=== PATIENT | female | born 1945 | race African-American/Black ===

== ENCOUNTER 2020-02-26 12:30 | Outpatient (CLI) | payer MEDICARE, MEDICAID | END 2020-02-26 23:59 | disposition home or self-care (01) | LOC: WOU 12:30 | PROVIDERS: ATTEND Podiatrist Foot & Ankle Surgery | DX: E11.621 Type 2 diabetes mellitus with foot ulcer (principal); L97.412 Non-pressure chronic ulcer of right heel and midfoot with fat layer exposed; L97.522 Non-pressure chronic ulcer of other part of left foot with fat layer exposed; L84 Corns and callosities; Z89.432 Acquired absence of left foot; Z89.431 Acquired absence of right foot; Z79.02 Long term (current) use of antithrombotics/antiplatelets; Z79.82 Long term (current) use of aspirin | CPT/HCPCS: 11042; J3490 ==

== ENCOUNTER 2020-03-04 13:30 | Outpatient (CLI) | payer MEDICARE, MEDICAID | END 2020-03-04 23:59 | disposition home or self-care (01) | LOC: WOU 13:30 | PROVIDERS: ATTEND Podiatrist Foot & Ankle Surgery | DX: E11.621 Type 2 diabetes mellitus with foot ulcer (principal); L97.422 Non-pressure chronic ulcer of left heel and midfoot with fat layer exposed; Z89.432 Acquired absence of left foot; Z89.431 Acquired absence of right foot; Z79.02 Long term (current) use of antithrombotics/antiplatelets; Z79.82 Long term (current) use of aspirin | CPT/HCPCS: 11042 ==

== ENCOUNTER 2020-03-11 12:15 | Outpatient (CLI) | payer MEDICARE, MEDICAID | END 2020-03-11 23:59 | disposition home or self-care (01) | LOC: WOU 12:15 | PROVIDERS: ATTEND Podiatrist Foot & Ankle Surgery | DX: E11.621 Type 2 diabetes mellitus with foot ulcer (principal); L97.422 Non-pressure chronic ulcer of left heel and midfoot with fat layer exposed; Z89.432 Acquired absence of left foot; Z89.431 Acquired absence of right foot; L84 Corns and callosities; Z79.02 Long term (current) use of antithrombotics/antiplatelets; Z79.82 Long term (current) use of aspirin | CPT/HCPCS: 11042 ==

== ENCOUNTER 2020-03-18 13:10 | Outpatient (CLI) | payer MEDICARE, MEDICAID | END 2020-03-18 23:59 | disposition home or self-care (01) | LOC: WOU 13:10 | PROVIDERS: ATTEND Podiatrist Foot & Ankle Surgery | DX: E11.621 Type 2 diabetes mellitus with foot ulcer (principal); L97.422 Non-pressure chronic ulcer of left heel and midfoot with fat layer exposed; L84 Corns and callosities; Z89.432 Acquired absence of left foot; Z89.431 Acquired absence of right foot; Z79.02 Long term (current) use of antithrombotics/antiplatelets; Z79.82 Long term (current) use of aspirin | CPT/HCPCS: 11042 ==

== ENCOUNTER 2020-03-25 13:00 | Outpatient (CLI) | payer MEDICARE, MEDICAID | END 2020-03-25 23:59 | disposition home or self-care (01) | LOC: WOU 13:00 | PROVIDERS: ATTEND Podiatrist Foot & Ankle Surgery | DX: E11.621 Type 2 diabetes mellitus with foot ulcer (principal); L97.522 Non-pressure chronic ulcer of other part of left foot with fat layer exposed; L84 Corns and callosities; Z89.432 Acquired absence of left foot; Z89.431 Acquired absence of right foot; Z79.82 Long term (current) use of aspirin; Z79.02 Long term (current) use of antithrombotics/antiplatelets | CPT/HCPCS: 11042 ==

== ENCOUNTER 2021-09-07 14:11 | Inpatient (IN) | payer MEDICARE, OTHER ==
[~2021-09-07] VITALS: Ht 170.2 cm; Wt 65.8 kg
[2021-09-07] MEDS ORDERED: IV NS 0.9% 1,000 ML BAG IV ONE (14:30)
--- NOTE | 2021-09-07 14:30 | NUR ---
loc, from home, weakness, found on the ground, denies fall, BS 145. On room air, connected to the monitor and pulse ox. kept comfortable, will continue to monitor accordingly. IV started and blood drawned and sent to lab and urine.
[2021-09-07] MEDS ORDERED: ALPR1TAB7 PO (14:42)
[2021-09-07] MEDS ORDERED: PRAV20TA4 PO (14:42)
[2021-09-07] MEDS ORDERED: CLOP75TA15 PO (14:42)
[2021-09-07] MEDS ORDERED: EZET10TA32 PO (14:42)
[2021-09-07] MEDS ORDERED: LEVO112T7 PO (14:42)
[2021-09-07] MEDS ORDERED: CARV6.252 PO (14:42)
[2021-09-07] MEDS ORDERED: AMLO-213 PO (14:42)
[2021-09-07 15:06] LABS: BASOPHILS % (AUTO) 0.2 % (0.0-2.0); HEMATOCRIT 39 % (33-45); HEMOGLOBIN 12.2 g/dL (11.5-14.8); LYMPHOCYTES # (AUTO) 1.4 K/uL (0.8-4.8); LYMPHOCYTES % (AUTO) 6.4 % (20.0-44.0); MEAN CORPUSCULAR HGB CONC 31 g/dl (31.0-36.0); MEAN CORPUSCULAR VOLUME 95 fL (82-100); MONOCYTES # (AUTO) 2.2 K/uL (0.1-1.30); MONOCYTES % (AUTO) 9.7 % (2.0-12.0); NEUTROPHILS # (AUTO) 18.5 K/uL (1.8-8.9); NEUTROPHILS % (AUTO) 83.7 % (43.0-81.0); PLATELET COUNT (AUTO) 301 K/uL (150-450); RED BLOOD CELL COUNT(AUTO) 4.07 MIL/uL (4.0-5.2); WHITE BLOOD COUNT (AUTO) 22.1 K/uL (4.3-11.0)
[2021-09-07 15:09] LABS: CALCIUM, SERUM 9.8 mg/dL (8.5-10.1); CARBON DIOXIDE 20 mmol/L (21-32); CHLORIDE 114 mmol/L (98-107); CREATININE 4.1 mg/dL (0.6-1.3); GLUCOSE 173 mg/dL (74-106); SODIUM SERUM 153 mmol/L (136-145)
[2021-09-07 15:14] LABS: POTASSIUM 5.9 mmol/L (3.5-5.1); UREA NITROGEN, BLOOD 107 mg/dL (7-18)
[2021-09-07 15:19] LABS: BILIRUBIN,URINE NEGATIVE (NEGATIVE); COLOR,URINE YELLOW (YELLOW); LEUKOCYTE ESTERASE ,URINE MODERATE (NEGATIVE); NITRITE, URINE POSITIVE (NEGATIVE); PROTEIN,URINE 100 mg/dl (NEGATIVE); UGLUCOSE NEGATIVE (NEGATIVE); UROBILINOGEN,URINE 0.2 EU/dL (0.2)
[2021-09-07 15:22] LABS: MAGNESIUM 3.4 mg/dL (1.8-2.4)
[2021-09-07 15:28] LABS: ALANINE AMINOTRANSFERASE 88 U/L (12-78); ALBUMIN 3.3 g/dL (3.4-5.0); ALKALINE PHOSPHATASE 106 U/L (46-116); ASPARTATE AMINOTRANSFERASE 137 U/L (15-37); BILIRUBIN,DIRECT 0.1 mg/dL (0.0-0.2); TOTAL PROTEIN, SERUM 8.8 g/dL (6.4-8.2)
[2021-09-07 15:29] LABS: THYROID STIMULATING HORMONE 9.753 uIU/mL (0.358-3.74)
[2021-09-07] MEDS ORDERED: CALCIUM CHLORIDE 1,000 MG/10 ML DISP.SYRIN IV ONE (15:30)
[2021-09-07] MEDS ORDERED: ENOXAPARIN SODIUM 60 MG/0.6 ML DISP.SYRIN SQ ONE ×2 (15:30→15:36)
[2021-09-07] MEDS ORDERED: FUROSEMIDE 40 MG/4 ML VIAL IV ONE (15:30)
[2021-09-07] MEDS ORDERED: CALCIUM CHLORIDE 1,000 MG/10 ML DISP.SYRIN ONE (15:36)
[2021-09-07] MEDS ORDERED: FUROSEMIDE 20 MG/2 ML VIAL ONE (15:36)
--- NOTE | 2021-09-07 15:45 | NUR ---
SENT COVID SWAB TO LAB
[2021-09-07] MEDS ORDERED: VANCOMYCIN 1 GM in IV D5W 250 ML IV ONE (16:00)
[2021-09-07] MEDS ORDERED: CEFEPIME 1 GM in IV D5W 50 ML IV ONE (16:00)
[2021-09-07 16:05] LABS: BACTERIA,URINE Few /HPF (None Seen); SQUAMOUS EPITHELIAL CELL,UR Few /HPF (None Seen)
--- NOTE | 2021-09-07 17:09 | NUR ---
room 312-2
--- NOTE | 2021-09-07 17:25 | NUR ---
report given to Ellie dunaway.
--- NOTE | 2021-09-07 17:43 | NUR ---
wheeled patient via gurney accompanied by RN and emt in no distress. RN assigned at bedside to assume care.
--- NOTE | 2021-09-07 17:45 | NUR ---
VETERINARY TECHNOLOGY INSTRUCTORCLAY ARTIST NOTE PT TRANSPORTED VIA GURNEY TO UNIT AT THIS TIME. PT ADMITTED TO TELE UNIT FROM ER UNDER RANCH MANAGER THUY. A/O X3, ABLE TO MAKE NEEDS KNOWN. PT ON ROOM AIR TOLERATING WELL. NO SOB OR S/S OF RESPIRATORY DISTRESS NOTED. PT ON EXTERNAL ASSOCIATE SALES READING SR AT 63 BPM. PT HAS NO C/O PAIN OR DISCOMFORT AT THIS TIME. PT NOTED WITH SACRAL ULCER, SCARRING ON BACK, AND MULTIPLE TOE AMPUTATIONS WITH BLE SURGICAL DRESSING C/D/I. WOUND PHOTOS TAKEN AND FILED IN CHART. IV ACCESS IN LAC #18 AND RIGHT WRIST #22, INTACT AND PATENT. DAVIS CATH IN PLACE DRAINING SLIGHTLY CLOUDY, YELLOW URINE. PT ORIENTED TO STAFF, ROOM, AND UNIT. SAFETY PRECAUTIONS MAINTAINED. BED IN LOWEST LOCKED POSITION, HOB ELEVATED, SIDE RAILS UP X2. CALL LIGHT AND TABLE WITHIN REACH. WILL CONTINUE TO MONITOR.
--- NOTE | 2021-09-07 19:00 | NUR ---
MARKETING SALES MANAGER CLOSING NOTE PT IS AWAKE IN BED. A/O X3. PT ON ROOM AIR TOLERATING WELL. NO SOB OR S/S OF RESPIRATORY DISTRESS NOTED. PT ON EXTERNAL REMOTE ADVISOR READING SR AT 66 BPM. PT HAS NO C/O PAIN OR DISCOMFORT AT THIS TIME. IV ACCESS IN LAC #18 AND RIGHT WRIST #22, INTACT AND PATENT. DAVIS CATH IN PLACE DRAINING SLIGHTLY CLOUDY, YELLOW URINE. ALL NEEDS HAVE BEEN MET. SAFETY PRECAUTIONS MAINTAINED AT ALL TIMES. BED IN LOWEST LOCKED POSITION, HOB ELEVATED, SIDE RAILS UP X2. CALL LIGHT AND TABLE WITHIN REACH. WILL ENDORSE TO ONCOMING NURSE FOR AKIRA.
--- NOTE | 2021-09-07 19:30 | NUR ---
OPENING RN NOTES Patient is A&Ox3 but mumbles words and confused at times. Pt is fidgety. SR on monitor. Denies SOB no signs of distress. LAC #18G flushed and patent. Will continue to monitor.
[2021-09-07 20:00] VITALS: BP 132/57
[2021-09-07] MEDS ORDERED: DEXTROSE 50%-WATER 50 ML DISP.SYRIN IV PRN (20:00)
[2021-09-07] MEDS ORDERED: MAGNESIUM HYDROXIDE 30 ML UDC PO PRN (20:00)
[2021-09-07] MEDS ORDERED: ONDANSETRON HCL/PF 4 MG/2 ML VIAL IVP PRN (20:00)
[2021-09-07] MEDS: IV 1/2NS 1000 ML 1,000 ML IV PRN (20:22)
[2021-09-07 20:43] LABS: CALCIUM, SERUM 9.7 mg/dL (8.5-10.1); CARBON DIOXIDE 21 mmol/L (21-32); CHLORIDE 116 mmol/L (98-107); CREATININE 4.3 mg/dL (0.6-1.3); GLUCOSE 151 mg/dL (74-106); SODIUM SERUM 153 mmol/L (136-145)
[2021-09-07] MEDS: CEFTRIAXONE 1 G in IV D5W 50 ML IV SCH (20:46)
[2021-09-07 20:57] LABS: UREA NITROGEN, BLOOD 109 mg/dL (7-18)
[2021-09-07] MEDS: HEPARIN SODIUM, PORCINE 5000 UNITS/1 ML VIAL SQ SCH (21:00)
[2021-09-07] MEDS: BLOOD SUGAR DIAGNOSTIC 1 EACH STRIP IN SCH (21:44)
[2021-09-07] MEDS: INSULIN REGULAR, HUMAN 100 UNIT/ML 3 ML VIAL SQ PRN (21:47)
--- NOTE | 2021-09-07 22:45 | NUR ---
Patient is reporting that her toe amputations are old but will not allow staff to undo dressings and assess feet. Patient states, "they have been cleaned, I don't want you messing with them" referring to her feet and dressings. When attempting to remove wrapping patient screamed "NO!" Explained reasoning x3, pt. still refusing. No pictures able to be taken of feet. Patient denies pain to area.
[2021-09-08] VITALS: BP 121/48
--- NOTE | 2021-09-08 | NUR ---
Per Jesica caregiver patient gets a wound treatment and or debridement every Monday and the wounds are supposed to covered in between treatments. Also stated that patient is very secretive about her foot wounds.
--- NOTE | 2021-09-08 00:13 | NUR ---
2100 heparin held pt already received Lovenox 60mg in ER at 1600.
[2021-09-08 04:00] VITALS: BP 131/53
[2021-09-08] MEDS: IV 1/2NS 1000 ML 1,000 ML IV PRN ×2 (04:31→15:26)
--- NOTE | 2021-09-08 05:45 | NUR ---
Patient more confused at night A&Ox2. Patient fidgeting and awake most of night saying she wants to go home. Tolerating IVF and ABX well, no ase. No hypo or hyperglycemia reactions. Turn q2h, kept clean and dry. Good urine output yellow and slightly cloudy. Patient has been Sr with PVCs on monitor in 70s. Denies chest pain or SOB. No distress noted. 1/2 NS infusing TO LAC #18G IV at 125cc/hr.
[2021-09-08 06:25] LABS: BASOPHILS % (AUTO) 0.1 % (0.0-2.0); HEMATOCRIT 31 % (33-45); HEMOGLOBIN 10.1 g/dL (11.5-14.8); LYMPHOCYTES # (AUTO) 1.3 K/uL (0.8-4.8); LYMPHOCYTES % (AUTO) 8.7 % (20.0-44.0); MEAN CORPUSCULAR HGB CONC 32 g/dl (31.0-36.0); MEAN CORPUSCULAR VOLUME 94 fL (82-100); MONOCYTES # (AUTO) 1.3 K/uL (0.1-1.30); NEUTROPHILS # (AUTO) 12.4 K/uL (1.8-8.9); NEUTROPHILS % (AUTO) 82.2 % (43.0-81.0); PLATELET COUNT (AUTO) 238 K/uL (150-450); RED BLOOD CELL COUNT(AUTO) 3.33 MIL/uL (4.0-5.2)
[2021-09-08 06:52] LABS: CHOLESTEROL 167 mg/dL (<200); HDL CHOLESTEROL 55 mg/dL (40-60); LDL 71 mg/dL (0-99); TRIGLYCERIDES 220 mg/dL (30-150)
[2021-09-08] MEDS: BLOOD SUGAR DIAGNOSTIC 1 EACH STRIP IN SCH ×4 (07:01→21:44)
[2021-09-08 07:08] LABS: CREATINE KINASE, TOTAL 1846 U/L (26-192)
[2021-09-08 07:13] LABS: CALCIUM, SERUM 8.9 mg/dL (8.5-10.1); CARBON DIOXIDE 19 mmol/L (21-32); CHLORIDE 117 mmol/L (98-107); CREATININE 4.1 mg/dL (0.6-1.3); GLUCOSE 105 mg/dL (74-106); MAGNESIUM 2.5 mg/dL (1.8-2.4); PHOSPHORUS 2.7 mg/dL (2.5-4.9); POTASSIUM 3.5 mmol/L (3.5-5.1); SODIUM SERUM 153 mmol/L (136-145)
--- NOTE | 2021-09-08 07:20 | NUR ---
MAT CLEANING MACHINE OPERATOR OPENING NOTES RECEIVED PATIENT LAYING IN BED. A/O X2-3. PATIENT WITH REGULAR AND UNLABORED BREATHING ON ROOM AIR TOLERATED WELL. NO SIGNS AND SYMPTOMS OF DISTRESS NOTED. NO COMPLAIN OF PAIN OR DISCOMFORT AT THIS TIME. WITH IV ACCESS LAC G #18 SL AND R MARYCARMEN G #22 WITH 1/2 NS @125MLS/HR ACCESS PATENT AND INTACT. SAFETY PRECAUTIONS ENFORCED WITH BED LOCKED AND AT LOWEST POSITION SIDERAILS UP X2. CALL LIGHT WITHIN REACH AT ALL TIMES. WILL CONTINUE TO MONITOR PATIENT. Addendum: 09/08/21 at 1822 by WESTON COX RN Navneet JEFFERSON G #22 IS SL AND LAC G #18 WITH 1/2 NS @ 125MLS/HR
[2021-09-08 07:26] LABS: UREA NITROGEN, BLOOD 109 mg/dL (7-18)
[2021-09-08 08:00] VITALS: BP 134/48
[2021-09-08] MEDS: HEPARIN SODIUM, PORCINE 5000 UNITS/1 ML VIAL SQ SCH ×2 (09:22→21:35)
--- NOTE | 2021-09-08 11:55 | NUR ---
MS RN NOTE D/C TELE
[2021-09-08 16:08] VITALS: BP 146/55
--- NOTE | 2021-09-08 18:51 | NUR ---
MS RN CLOSING NOTES RECEIVED PATIENT LAYING IN BED. A/O X2-3. PATIENT WITH REGULAR AND UNLABORED BREATHING ON ROOM AIR TOLERATED WELL. NO SIGNS AND SYMPTOMS OF DISTRESS NOTED. NO COMPLAIN OF PAIN OR DISCOMFORT AT THIS TIME. WITH IV ACCESS LAC G #18 WITH 1/2 NS @125MLS/HRS AND R WRIST G #22 SL. ACCESS PATENT AND INTACT. SAFETY PRECAUTIONS ENFORCED WITH BED LOCKED AND AT LOWEST POSITION SIDERAILS UP X2. CALL LIGHT WITHIN REACH AT ALL TIMES. WILL ENDORSE TO NEXT SHIFT FOR CONTINUITY OF CARE.
--- NOTE | 2021-09-08 19:45 | NUR ---
MS RN OPENING RECEIVED PATIENT IN BED. A/OX2. CONFUSED. PATIENT NOT EXHIBITING S/S OF APPARENT DISTRESS ON ROOM AIR. DENIES PAIN. LAC IV NOTED TO BE INFILTRATED-- TAKEN OFF. NS RUNNING AT 125 CC/HR ON THE R. WRIST NOW. DAVIS CATHETER NOTED DRAINING CLEAR, YELLOW URINE. PATIENT NOTED TO HAVE BLE DRESSING/SACK IN PLACE. PATIENT NEEDS ATTENDED. SAFETY IN PLACE- BED IN LOWEST, LOCKED POSITION, SIDE RAILS UP 4X, BED ALARM ON. WILL CONTINUE WITH PATIENT CARE PLAN.
[2021-09-08 20:00] VITALS: BP 167/60
[2021-09-08] MEDS: CEFTRIAXONE 1 G in IV D5W 50 ML IV SCH (20:20)
[2021-09-08] MEDS: INSULIN REGULAR, HUMAN 100 UNIT/ML 3 ML VIAL SQ PRN (21:47)
--- NOTE | 2021-09-09 05:02 | NUR ---
MS RN NOTE PATIENT CURRENTLY DO NOT HAVE IV ACCESS. R. WRIST IV PULLED OUT. I TRIED, CHARGE NURSE TRIED, AND ICU CAME UP TO TRY TO INSERT A NEW ONE BUT WERE UNSUCCESSFUL. PATIENT HARD STICK. WILL TRY TO GET AN ORDER FOR MIDLINE.
[2021-09-09 06:44] LABS: HEMATOCRIT 31 % (33-45); HEMOGLOBIN 9.8 g/dL (11.5-14.8); LYMPHOCYTES # (AUTO) 1.3 K/uL (0.8-4.8); LYMPHOCYTES % (AUTO) 8.6 % (20.0-44.0); MEAN CORPUSCULAR HGB CONC 32 g/dl (31.0-36.0); MEAN CORPUSCULAR VOLUME 93 fL (82-100); MONOCYTES # (AUTO) 1.5 K/uL (0.1-1.30); MONOCYTES % (AUTO) 9.9 % (2.0-12.0); NEUTROPHILS # (AUTO) 12.1 K/uL (1.8-8.9); NEUTROPHILS % (AUTO) 81.5 % (43.0-81.0); PLATELET COUNT (AUTO) 259 K/uL (150-450); WHITE BLOOD COUNT (AUTO) 14.8 K/uL (4.3-11.0)
[2021-09-09] MEDS: BLOOD SUGAR DIAGNOSTIC 1 EACH STRIP IN SCH ×4 (06:47→22:00)
[2021-09-09] MEDS: INSULIN REGULAR, HUMAN 100 UNIT/ML 3 ML VIAL SQ PRN ×4 (06:48→22:44)
--- NOTE | 2021-09-09 06:48 | NUR ---
MS RN NOTE BLOOD SUGAR 77. NO COVERAGE.
[2021-09-09 07:27] LABS: CALCIUM, SERUM 8.9 mg/dL (8.5-10.1); CARBON DIOXIDE 16 mmol/L (21-32); CHLORIDE 121 mmol/L (98-107); CREATININE 2.9 mg/dL (0.6-1.3); GLUCOSE 104 mg/dL (74-106); MAGNESIUM 2.6 mg/dL (1.8-2.4); PHOSPHORUS 2.1 mg/dL (2.5-4.9); POTASSIUM 3.4 mmol/L (3.5-5.1); SODIUM SERUM 153 mmol/L (136-145)
[2021-09-09 07:28] LABS: UREA NITROGEN, BLOOD 90 mg/dL (7-18)
--- NOTE | 2021-09-09 07:31 | NUR ---
REPORT GIVEN TO BRAEDEN FOR CONTINUITY OF CARE.
--- NOTE | 2021-09-09 07:35 | NUR ---
RN OPENING NOTES Patient seen comfortably lying in bed, no SOB, no apparent distress noted, breathing even and unlabored, denies any pain or discomfort at this time, no grimacing. Call light left within reach, safety precautions in place, brakes locked, side rails up X 2, will monitor closely for any changes.
[2021-09-09 08:00] VITALS: BP 128/49
--- NOTE | 2021-09-09 08:37 | NUR ---
WOUND CARE CONSULT: PT PRESENTS WITH MULTIPLE SKIN ISSUES INCLUDING SACRAL STAGE 4 ULCER, SCAR TO MIDBACK AND NONREMOVABLE DRESSINGS TO BILATERAL LOWER EXTREMITIES, ALL PRESENT ON ADMISSION. PT IS INCONTINENT OF STOOL. DAVIS CATH NOTED. RECOMMENDATIONS MADE FOR SKIN PROTECTION AND WOUND CARE OF SACRAL WOUND. DISCUSSED WITH NURSING STAFF. DR DARBY MATSON AND DR HENDERSON NOTIFIED OF SURGICAL AND DPM CONSULT REQUESTS. PT IS ON [facility] BED. IN AGREEMENT WITH PLAN OF CARE. Addendum: 09/09/21 at 0839 by ARSENIO GHOTRAU Amended: Links added. Addendum: 09/09/21 at 0909 by ARSENIO GHOTRAU PER LAURE MEADOWS TO REMOVE LOWER EXTREMITY DRESSINGS. BILATERAL MULTILAYER COMPRESSION WRAPS REMOVED, RT HEEL DRESSING REMOVED. PT REFUSED TO HAVE SILVER DRESSING AND PADDING REMOVED FROM LEFT PLANTAR FOOT. PHOTOS TAKEN AND GENTLE KERLIX WRAPS PLACED ON FEET AND ANKLE AREAS. PT TOLERATED WELL.
[2021-09-09] MEDS ORDERED: IV D5/0.45 NACL 1,000 ML IV PRN (09:30)
[2021-09-09] MEDS: Z GUARD REMEDY 2 OZ OINT TP SCH (10:28)
[2021-09-09] MEDS: Z GUARD REMEDY 2 OZ OINT TP PRN (10:28)
[2021-09-09] MEDS: DAKINS QUARTER STRENGTH (0.125%) 480 ML BOTTLE TOP SCH (10:29)
[2021-09-09] MEDS: HEPARIN SODIUM, PORCINE 5000 UNITS/1 ML VIAL SQ SCH ×2 (10:29→22:23)
--- NOTE | 2021-09-09 11:30 | NUR ---
Patient has an order for excisional debridement of sacral wound, called Jayne Hinson to obtained consent for the procedure (phone: [phone]), and voice machine said that the number has been disconnected or no longer in service, asked patient if she knows Lilorenu's number and she said she cannot remember, patient AO X 2-3 with episodes of forgetfulness and confusion.
[2021-09-09] MEDS: MINERAL OIL/PETROLATUM,WHITE 120 GM JAR TP SCH (11:35)
--- NOTE | 2021-09-09 14:30 | NUR ---
Patient has an order for excisional debridement of sacral wound, called Jesica (caregiver) (phone [phone]) to ask if by any chance she have Jayne Hinson's phone number and she said she only know that patient has two sisters but she does not have their number, and won't be able to provide their phone numbers.
[2021-09-09 16:00] VITALS: BP 133/64
--- NOTE | 2021-09-09 16:04 | NUR ---
SS Consult: SS consult for sacral pressure ulcer, pt. found on floor at home. Pt. Is a 76-year-old female. Pt. demonstrates adequate insight to the reason for hospitalization. Per pt., she was brought to hospital by ambulance [called by friend Jayne [phone]] due to not feeling well. Pt. was oriented x3, alert, and cooperative. During interview, pt. was capable of following directions, made appropriate eye-contact, and appeared tired. Pt.s speech was at a normal rate. Pt.s mood was elevated. SW explored pt.s Hx of mental health and substance abuse. Pt. reported no Hx of mental health, substance abuse, Suicide, homicide, denied AH/VH, paranoia or delusions. SW explored pt.s living situation. Per pt., she lives alone [[address] [place] [address] Per pt., she reports having adequate support from her friend Jayne. Per pt., she mentioned that her friend is also her caregiver and nurse. According to pt., Jayne comes check on her daily. Pt. reported that she comes to the hospital [[facility]] every week for wound care. HAIM explored pt.s fall at home. Per pt., she fell because she was tired. Pt. mentioned that her caregiver Jayne was there to call the ambulance. HAIM explored pt.s financial status. Per pt., she is not working and does not receive any benefits. Plan: HAIM provided available senior resources and pt. accepted. HAIM made APS report regarding fall. Intake Number: [id number] Once discharge, per pt., she will return to her home [[address] [place] [address]]. Resources Provided: ABUSE PREVENTION: ELDER ABUSE HOTLINE (15/05) ADULT PROTECTIVE SERVICES HOTLINE LONG-TERM CARE [facility] AREA ON AGING (HOTLINE) ADULT DAY HEALTH CARE CARE CENTERS: Private pay or [facility] funded adult day care [facility] Day Health Care [facility] , [facility] Services , [facility] Adult Care Center , [facility] Day Health Care , [facility] Day Health Care , [facility] , [facility] , [place] Gaudencio [facility] , [place] ALZHEIMERS DISEASE/DEMENTIA: Alzheimers Association Helpline [facility] Chapter www.alz.org/[facility] Department of Aging www.lacity.org Family Caregiver [place] www.caregiver.org [place] Caregiver Resources Center/Family Support www.beaver valley hospitalangeuofl health - jewish hospital.org CANCER RESOURCES: [place] Cancer Society www.cancer.org Cancer Support Community www.CancerSupportVvsb.org: CancerCare www.cancercare.org [facility] Cancer Support [place] www.[facility].org COMMUNITY HEALTH ASSOCIATIONS: AARP www.aarp.org ALS Association (ask for Lin) www.als.org [place] Diabetes Association www.diabetes.org [place] Heart Association www.heart.org [place] Lung Association www.lungusa.org [place] Parkinson Disease Association www.apdaparkinson.org [place] White , www.redcross.org Arthritis Foundation www.arthritis.org Crohns & Colitis Foundation of [place] www.ccfa.org/chapters/itz National Multiple Sclerosis Society www.nationalmssociety.org Myasthenia Gravis Foundation www.myasthenia-ca.org National Stroke Association www.stroke.org CONSERVATORSHIP & GUARDIANSHIP: AARP Blanche Bob Legal Services Center for Health Care Rights Eldercare Information and Referral Top Case Assembler Foundation [facility]: [facility] Bar Referral Service [facility] Legal Services Office of the Public Guardian [place] EYESIGHT DISORDER RESOURCES: [place] Macular Degeneration Foundation [facility] www.brandenburg center.org GRIEF AND BEREAVEMENT RESOURCES: The [place] , [facility] THE HOPE Connection , [facility] , [place] HEARING DISORDER RESOURCES: [place] Telephone Access Program Deaf and Disabled Telecommunications Program www.ddtp.[facility].ca.gov HearRx Hearing Centers ([place]) Better Hearing Systems , [place] GLAD ([facility] Agency on Deafness) V/ TTY; Site Technician , [facility] Hearing [facility] -low income hearing aid assistance www.Medic Vision Brain Technologiesdetwiler memorial hospitalringfoundation.org [place] [facility] , [place] HELP AT HOME CAREGIVER SUPPORT: In Home Support Services (Must have Medi-Kurt to be eligible) *Ask for a list of agencies that provide services to assist with care in the home. Local Senior Centers also have listings of care providers. HOME SAFETY MODIFICATIONS AND EQUIPMENT: Senior centers have additional referrals. [place] Housing and Community Investment Dept. Handyworker Program (low income) or Visit http://hcidla.lacity.org/dhu-qzbppg-dc for more information National Seating and Mobility and/or ; Forever Active www.foreverVisual Revenuemed.com Stay Home Safe www.Stayhomesafe.com LIFE ALERT RESPONSE SYSTEM: [place]! Services 961-574-3701 www. GaBoom Life Alert 059-701-4666 www.Hit Systems Life Station 293-800-6254 www.OSA Technologiesation.Dtime Safe Return 658-629-6044 www.alz.or/safereturn Cell Phones for Seniors www.BookBottles MEALS AND FOOD PROGRAMS: [place] Meals on Wheels [phone] [place] Meals on Wheels [phone] [facility] [phone] [place] to the Homebound [phone] [place] to the Homebound [phone] [facility] to the Homebound [phone] [facility] to the Homebound [phone] [facility] Pablo Potts [phone] [facility] 922-700-8706 ONE Generation [phone] [facility] [phone] [facility] [phone] Meals on Wheels [phone] For all ages: $6.85/ meal w side. Delivered M-F from 10 am-1pm. Application and payment is done over the phone. Frozen meals available for weekends. Emergency Food Coalsierra [place] [phone] [facility] Precast Molder [phone] [facility] [phone] [facility]- Brown bag lunches [phone] [facility] [phone] MEAL/GROCERY DELIVERY PROGRAMS: [facility] Gourmet Meals [phone]- [facility] [phone]- [facility] Magic Kitchen [phone] Moms Meals [phone] (ask Pfeiffer for Discount Select grocery stores may provide delivery. MEDICAL INSURANCE SUPPORT SERVICES: Center for Health Care Rights [phone] Health Insurance Counseling/Advocacy Programs (HICAP)-Must have Medicare. Offers counseling for Medi-Kurt eligibility [phone] [facility] Public Precast Molder [phone] www.[facility].ca.gov Medicare 807-261-4663 www.socialsecurity.org Social Security [phone] SENIOR ACTIVITY PROGRAMS: *Contact a local senior center, adult school, recreation facility or community college for education, fitness, recreation, and social programs. Aquatic Therapy and Adapted Exercise programs through [facility] [phone] Encore at [facility] [phone] www.vencor hospital/encore U- Senior Friends [phone] [place] Senior Programs [phone] www.oasisnet.org Suddenly 65 www.eimejvax64.com SENIOR CENTERS: [facility] [phone] [facility] [place] [phone] [facility] [phone] [facility] [phone] [facility] [phone] [facility] [phone] [facility] [phone] [facility] [phone] One Generation, [facility] [phone] [facility] [phone] [facility] [phone] [facility] [phone] [facility] [phone] TRANSPORTATION: Local [facility] Centers may have applications for transportation programs and additional resources. ACCESS Services [phone] Transportation for seniors and disabled persons 7 days a week requiring 254 hr. advance reservation. Must apply and register for program perry eligible. [employer]arma 755-514-2285 or [phone] Transportation for seniors and persons with ADA card/metro disabled card in the [facility]. M-F only. Must register for services. ONE GENERATION [phone] Serves 65 years + in conjunction with [place] Partnerse program. Must be registered with both programs. A to B Transport [phone] Provides wheelchair/gurney van service. Adult Medical Transport [phone] Accepts Medi-kurt with prior authorization. Care Van [phone] Provides wheelchair Transport. [facility] Wide Transportation [phone] Provides gurney service [facility] [phone] Gurney Transport. [facility] Transportation [phone] wheelchair & gurney transport [facility] Transportation [phone] wheelchair & gurney transport [place] Non-Emergency Transport [phone] wheelchair & gurney transport [facility] Living [place] [phone] Short Term Transportation primarily for adults with disabilities on social security income. Nominal fee may apply and a reservation is required. Lemon Curve Cab [phone] or [phone] [facility] [phone] [place] [address] Referral Services -[phone] For additional programs & services VETERANS RESOURCES: Submissions for Aid and Attendance should be done directly to Federal VA office locatd at : [address] [address] X110 National Caregiver Support Line [phone] [facility] Veterans Services Field Office [phone] [place] Department of [place] Affairs [phone] Pension Information [phone]
[2021-09-09] MEDS: AMMONIUM LACTATE 227 GM BOTTLE TP SCH (17:06)
[2021-09-09] MEDS: GLUCERNA SHAKE 237 ML CAN PO SCH (17:06)
[2021-09-09] MEDS ORDERED: POTASSIUM CHLORIDE 20 MEQ POWDER PACKET PO ONE (17:30)
--- NOTE | 2021-09-09 18:41 | NUR ---
RN CLOSING NOTES Patient lying in bed, AO X 2, with episodes of forgetfulness and confusion, redirection and reorientation provided. No apparent distress noted, no SOB, respirations even and unlabored, denies any pain or discomfort, no grimacing. All medications given per MD order, tolerating well. No s/s of hypo/hyperglycemia noted, insulin given per sliding scale per MD order, tolerating well. Patient has an order for D5/0.45NS at 100ml/hr, tolerating well, IV fluids infusing on her midline located on her right upper arm that is inserted today, dressing dry and intact, no bleeding noted, denies any pain or discomfort at site, no swelling, no redness at this time. Lopez catheter draining clear yellowish urine free from any sediments, no hematuria, and no unusual odor noted in urine, denies any bladder pain or discomfort, bladder non distended during shift. Kept clean and dry, all needs anticipated, call light left within reach, safety precautions in place, brakes locked, side rails up X 2, will endorse to next shift for continuity of care.
--- NOTE | 2021-09-09 18:45 | NUR ---
Patient has an order for excisional debridement of sacral wound, tried to call Jayne Hinson's number (phone: [phone]) to obtain consent for the procedure and voice machine said that the number has been disconnected or no longer in service, consent form for procedure not signed yet, will endorse to incoming nurse to follow up.
[2021-09-09 20:00] VITALS: BP 142/74
--- NOTE | 2021-09-09 20:01 | NUR ---
MS RN OPENING NOTES: RECEIVED PATIENT SLEEP IN BED COMFORTABLY, BED IN LOW POSITION, CALL LIGHTS WITHIN REACH, NO COMPLAIN OF PAIN AND DISCOMFORT AT THIS TIME, A/O X2 CONFUSED ON BED REST, WITH ROLAND MIDLINE WITH ONGOING D5 1/2 NSS AT 100ML PER HOUR INFUSING WELL, PATIENT ON BLOOD SUGAR MONITORING, PATIENT KEPT CLEAN AND DRY ALL NEED MET, WILL CONTINUE TO MONITOR.
[2021-09-09] MEDS: CEFTRIAXONE 1 G in IV D5W 50 ML IV SCH (22:22)
[2021-09-10] MEDS ORDERED: SODIUM BICARBONATE SYR 50 MEQ/50 ML DISP.SYRIN ONE (01:11)
[2021-09-10] MEDS: Sodium Bicarbonate 50 MEQ in IV D5W 1,000 ML IV SCH ×3 (02:08→21:13)
--- NOTE | 2021-09-10 07:28 | NUR ---
MS RN OPENING NOTES RECEIVED PATIENT LAYING IN BED. A/O X2-. VERBALLY RESPONSIVE, DENIES PAIN OR ANY DISCOMFORTS AT THIS TIME. ON ROOM AIR TOLERATED WELL. NO SIGNS AND SYMPTOMS OF DISTRESS NOTED. MIDLINE ON ROLAND INTACT WITH IVF D5 NA HCO3 50MEQ NS @100MLS/HR ACCESS PATENT AND INTACT. SAFETY PRECAUTIONS ENFORCED WITH BED LOCKED AND AT LOWEST POSITION SIDERAILS UP X2. CALL LIGHT WITHIN REACH AT ALL TIMES. WILL CONTINUE TO MONITOR PATIENT.
[2021-09-10] MEDS: BLOOD SUGAR DIAGNOSTIC 1 EACH STRIP IN SCH ×4 (07:32→22:00)
--- NOTE | 2021-09-10 07:37 | NUR ---
MS RN CLOSING NOTES: PATIENT SLEEP IN BED COMFORTABLY, BED IN LOW POSITION, CALL LIGHTS WITHIN REACH, NO COMPLAIN OF PAIN AND DISCOMFORT AT THIS TIME, ON RA NO SOB NOTED, WITH IV MIDLINE AT ROLAND WITH ONGOING D5W INFUSING WELL, SACRAL DRESSING CLEAN AND DRY, ALL NEEDS MET,
[2021-09-10 08:18] VITALS: BP 149/65
[2021-09-10] MEDS: GLUCERNA SHAKE 237 ML CAN PO SCH ×2 (08:20→16:57)
[2021-09-10] MEDS: HEPARIN SODIUM, PORCINE 5000 UNITS/1 ML VIAL SQ SCH ×2 (08:34→21:30)
[2021-09-10] MEDS: AMMONIUM LACTATE 227 GM BOTTLE TP SCH ×2 (08:35→16:58)
[2021-09-10] MEDS: MINERAL OIL/PETROLATUM,WHITE 120 GM JAR TP SCH (08:36)
[2021-09-10] MEDS: DAKINS QUARTER STRENGTH (0.125%) 480 ML BOTTLE TOP SCH (08:36)
[2021-09-10] MEDS: Z GUARD REMEDY 2 OZ OINT TP PRN (08:37)
[2021-09-10] MEDS: Z GUARD REMEDY 2 OZ OINT TP SCH (08:51)
[2021-09-10] MEDS: INSULIN REGULAR, HUMAN 100 UNIT/ML 3 ML VIAL SQ PRN ×3 (12:05→22:48)
[2021-09-10 12:17] LABS: CALCIUM, SERUM 8.8 mg/dL (8.5-10.1); CARBON DIOXIDE 24 mmol/L (21-32); CHLORIDE 118 mmol/L (98-107); CREATININE 2.4 mg/dL (0.6-1.3); GLUCOSE 174 mg/dL (74-106); MAGNESIUM 2.3 mg/dL (1.8-2.4); PHOSPHORUS 2.3 mg/dL (2.5-4.9); POTASSIUM 4.2 mmol/L (3.5-5.1); SODIUM SERUM 152 mmol/L (136-145); UREA NITROGEN, BLOOD 66 mg/dL (7-18)
--- NOTE | 2021-09-10 13:17 | NUR ---
MS RN NOTES RECEIVED CALL FROM DOREEN AT [facility] THAT PATIENT HAS CRITICAL LAB HIGH CK MB 8.9 DNP THUY NOTIFIED AND ACKNOWLEDGED. WILL CONTINUE TO MONITOR PATIENT.
[2021-09-10 13:19] LABS: BASOPHILS % (AUTO) 0.2 % (0.0-2.0); EOSINOPHILS % (AUTO) 0.4 % (0.0-6.0); HEMATOCRIT 33 % (33-45); HEMOGLOBIN 10.2 g/dL (11.5-14.8); LYMPHOCYTES # (AUTO) 1.5 K/uL (0.8-4.8); LYMPHOCYTES % (AUTO) 9.1 % (20.0-44.0); MEAN CORPUSCULAR HGB CONC 31 g/dl (31.0-36.0); MEAN CORPUSCULAR VOLUME 95 fL (82-100); MONOCYTES # (AUTO) 1.4 K/uL (0.1-1.30); MONOCYTES % (AUTO) 8.9 % (2.0-12.0); NEUTROPHILS # (AUTO) 13.1 K/uL (1.8-8.9); NEUTROPHILS % (AUTO) 81.4 % (43.0-81.0); PLATELET COUNT (AUTO) 304 K/uL (150-450); RED BLOOD CELL COUNT(AUTO) 3.48 MIL/uL (4.0-5.2); WHITE BLOOD COUNT (AUTO) 16.1 K/uL (4.3-11.0)
--- NOTE | 2021-09-10 14:26 | NUR ---
MS RN NOTES TRIED TO CONTACT DPOA FOR CONSENT FOR WOUND DEBRIDEMENT WITH PHONE NUMBER ON NOTES TWICE WITH NO ANSWER AND LEFT A MESSAGE. CALLED ZANDER THE CAREGIVER TWICE WITH NO ANSWER AND LEFT A MESSAGE.
[2021-09-10 16:00] VITALS: BP 160/64
[2021-09-10] MEDS ORDERED: K PHOS NEUTRAL 250 MG TABLET PO ONE (16:30)
--- NOTE | 2021-09-10 18:51 | NUR ---
MS RN CLOSING NOTES PATIENT IN BED AWAKE AT THIS TIME, HOB ELEVATED. A/O X2-3. ABLE TO COMMUNICATE VERBALLY WITH CONFUSION AND FORGETFULNESS. ON ROOM AIR, TOLERATED WELL. NO SIGNS AND SYMPTOMS OF ACUTE RESPIRATORY DISTRESS NOTED DURING THE DAY. MIDLINE ON ROLAND INTACT WITH IVF D5 NA HCO3 50MEQ @100 MLS/HR. PT TURNED AND REPPOSTIONED Q 2HRS AND PRN. KEPT CLEAN NAD DRY AT ALL TIMES. ALL NEEDS AND CARE PROVIDED WELL. SAFETY PRECAUTIONS KEPT IN PLACE: BED LOCKED AND IN LOWEST POSITION, SIDERAILS UP X2 AND CALL LIGHT WITHIN REACH AT ALL TIMES. WILL ENDORSED AKIRA TO HOUSING OFFICER NURSE.
--- NOTE | 2021-09-10 19:35 | NUR ---
MS RN OPENING NOTES: RECEIVED PATIENT AWAKE IN BED, BED IN LOW POSITION CALL LIGHTS WITHIN REACH, NO COMPLAIN OF PAIN AND DISCOMFORT AT THIS TIME, PATIENT IS A/OX 2=3-4 WITH EPISODE OF CONFUSION, ON BED REST, ON DAVIS CATH WITH 30CC URINE OUTPUT. WITH ROLAND MIDLINE WITH ONGOING D5W WITH SODIUM BICARBONATE @100ML PER HOUR INFUSING WELL, PATIENT KEPT CLEAN AND DRY, ALL NEEDS MET, WILL CONTINUE TO MONITOR.
[2021-09-10 20:00] VITALS: BP 132/59
[2021-09-10] MEDS: CEFTRIAXONE 1 G in IV D5W 50 ML IV SCH (21:27)
[2021-09-11] MEDS: Sodium Bicarbonate 50 MEQ in IV D5W 1,000 ML IV SCH (06:17)
[2021-09-11] MEDS: INSULIN REGULAR, HUMAN 100 UNIT/ML 3 ML VIAL SQ PRN ×4 (06:36→22:37)
--- NOTE | 2021-09-11 06:42 | NUR ---
MS RN CLOSING NOTES: PATIENT SLEEP IN BED COMFORTABLY, AROUSABLE TO VERBAL STIMULI, BED IN LOW POSITION, CALL LIGHTS WITHIN REACH, NO COMPLAIN OF PAIN AND DISCOMFORT AT THIS TIME, BR ON DAVIS CATHETER WITH 500CC URINE OUTPUT, WITH ROLAND MIDLINE WITH ONGOING D5W 1000ML SODIUM BICARBONATE 50 MEQ@100ML PER HOUR INFUSING WELL, DRESSING CHANGE, PATIENT KEPT CLEAN AND SRY, ALL NEEDS MET, ENDORSE TO INCOMING SHIFT.
[2021-09-11 06:51] LABS: BASOPHILS % (AUTO) 0.1 % (0.0-2.0); HEMATOCRIT 31 % (33-45); HEMOGLOBIN 9.5 g/dL (11.5-14.8); LYMPHOCYTES # (AUTO) 1.4 K/uL (0.8-4.8); LYMPHOCYTES % (AUTO) 9.6 % (20.0-44.0); MEAN CORPUSCULAR HGB CONC 31 g/dl (31.0-36.0); MEAN CORPUSCULAR VOLUME 95 fL (82-100); MONOCYTES # (AUTO) 1.4 K/uL (0.1-1.30); MONOCYTES % (AUTO) 9.9 % (2.0-12.0); NEUTROPHILS # (AUTO) 11.5 K/uL (1.8-8.9); NEUTROPHILS % (AUTO) 79.4 % (43.0-81.0); PLATELET COUNT (AUTO) 285 K/uL (150-450); RED BLOOD CELL COUNT(AUTO) 3.22 MIL/uL (4.0-5.2); WHITE BLOOD COUNT (AUTO) 14.5 K/uL (4.3-11.0)
--- NOTE | 2021-09-11 07:19 | NUR ---
RN OPENING NOTES: PATIENT IN BED RESTING, EYES CLOSED. AROUSABLE TO VERBAL AND TACTILE STIMULI. BREATHING EVEN AND UNLABORED. ROLAND MIDLINE INTACT AND PATENT, IVF INFUSING WELL. DAVIS CATH IN PLACE, DRAINING YELLOW-COLORED URINE. SAFETY MEASURES IN PLACE. WILL CONTINUE TO MONITOR.
[2021-09-11] MEDS: BLOOD SUGAR DIAGNOSTIC 1 EACH STRIP IN SCH ×4 (07:35→22:26)
[2021-09-11 08:00] VITALS: BP 107/57
[2021-09-11 08:02] LABS: CALCIUM, SERUM 8.4 mg/dL (8.5-10.1); CARBON DIOXIDE 26 mmol/L (21-32); CHLORIDE 112 mmol/L (98-107); CREATININE 1.8 mg/dL (0.6-1.3); GLUCOSE 147 mg/dL (74-106); PHOSPHORUS 2.2 mg/dL (2.5-4.9); POTASSIUM 3.3 mmol/L (3.5-5.1); SODIUM SERUM 148 mmol/L (136-145); UREA NITROGEN, BLOOD 44 mg/dL (7-18)
[2021-09-11] MEDS: LEVOTHYROXINE SODIUM 25 MCG TABLET PO SCH (08:27)
[2021-09-11] MEDS: HEPARIN SODIUM, PORCINE 5000 UNITS/1 ML VIAL SQ SCH (08:29)
[2021-09-11] MEDS: AMMONIUM LACTATE 227 GM BOTTLE TP SCH ×2 (08:33→16:33)
[2021-09-11] MEDS: Z GUARD REMEDY 2 OZ OINT TP SCH (08:34)
[2021-09-11] MEDS: MINERAL OIL/PETROLATUM,WHITE 120 GM JAR TP SCH (08:34)
[2021-09-11] MEDS: GLUCERNA SHAKE 237 ML CAN PO SCH ×2 (08:34→16:34)
[2021-09-11] MEDS: DAKINS QUARTER STRENGTH (0.125%) 480 ML BOTTLE TOP SCH (08:34)
--- NOTE | 2021-09-11 09:19 | NUR ---
RN NOTES AM MEDS GIVEN TO PATIENT. VERBALIZES THAT SHE HAS A RED BOOK AT HOME W/ CONTACT INFO OF HER SISTERS (GREER IN [place] AND MORENA SIERRA IN [place]); WILL ASK CAREGIVER ZANDER IF PRESENT AT HOME.
[2021-09-11] MEDS ORDERED: POTASSIUM CHLORIDE 10 MEQ TABLET.SA PO ONE (09:30)
--- NOTE | 2021-09-11 10:50 | NUR ---
RN NOTES PATIENT SEEN BY DR. DALEY TODAY. NO RELATIVE CURRENTLY INVOLVED IN PATIENT'S CARE AND UNABLE TO OBTAIN CONSENT FROM FAMILY/PATIENT DUE TO MENTAL STATUS (PATIENT IS A/O X2 BUT HAS EPISODES OF FORGETFULLNESS/CONFUSION). DNP SIGNED CONSENT; WILL OBTAIN ANOTHER HOSPITALIST CONSENT APPLICABLE.
[2021-09-11] MEDS: IV D5W 1,000 ML IV PRN (13:00)
[2021-09-11] MEDS ORDERED: CELLULOSE,OXIDIZED 1 EA PACK MC ONE (13:30)
[2021-09-11] MEDS ORDERED: LIDOCAINE 1% INJ 50 ML MDV IJ ONE (13:30)
[2021-09-11] MEDS ORDERED: SILVER NITRATE APPLICATOR 1 EA BOX TP ONE (13:30)
--- NOTE | 2021-09-11 13:39 | NUR ---
RN NOTES SILVER NITRATE APPLICATOR AND SURGICELL NOT USED AT THIS TIME BY SERVANDO COLUNGA; WOUND DEBRIDEMENT DONE AND DRESSING CHANGE DONE.
[2021-09-11] MEDS: ACETAMINOPHEN 325 MG TABLET PO PRN (13:45)
--- NOTE | 2021-09-11 14:04 | NUR ---
RN NOTES SACRAL WOUND SPECIMEN OBTAINED COLLECTED BY SERVANDO COLUNGA, AND PLACED IN THE REFRIGERATOR FOR PICK-UP.
[2021-09-11] MEDS ORDERED: K PHOS NEUTRAL 250 MG TABLET PO ONE (15:30)
[2021-09-11 16:00] VITALS: BP 138/52
[2021-09-11] MEDS: CARVEDILOL 6.25 MG TABLET PO SCH (16:34)
[2021-09-11] MEDS: ATORVASTATIN 10 MG TABLET PO SCH (17:12)
--- NOTE | 2021-09-11 19:11 | NUR ---
MS RN CLOSING NOTES: PATIENT SLEEP IN BED RESTING COMFORTABLY, EYES CLOSED, ABLE TO BE AWAKENED. BREATHING EVEN AND UNLABORED. DAVIS CATH DRAINING YELLOW-COLORED URINE; BAG CHANGED. IVF INFUSING WELL. SAFETY MEASURES MAINTAINED. ALL DUE MEDS GIVEN. ENDORSED TO PIE MAKER RN FOR AKIRA.
--- NOTE | 2021-09-11 19:15 | NUR ---
RN NOTES: RECEIVED ASLEEP ON BED, IN SEMI FOWLERS POSITION, A/O1-2 WITH PERIODS OF CONFUSION AND FORGETFULNESS, ON ROOM AIR, ON DAVIS CATH DRAINING INTO YELLOWISH URINE AT 100CC LEVEL, ROLAND MID LINE INTACT, WITH IVF OD D5%WATT 50CC/HR, OFF LOADED BLE, URINE SPECIMEN COLLECTED AND SENT TO LAB PER ENDORSEMENT, AWAITING FOR THE RESULT.ORIENTED TO UNIT AND STAFF, FALL AND SAFETY PRECAUTION OBSERVED, KEPT CALL LIGHT WITHIN EASY REACH.NO SIGN OF RESPIRATORY DISCOMFORT.
[2021-09-11 20:00] VITALS: BP 141/57
[2021-09-11] MEDS: CEFTRIAXONE 1 G in IV D5W 50 ML IV SCH (20:28)
--- NOTE | 2021-09-11 22:38 | NUR ---
RN NOTES: AT FIRST SHE REFUSE FOR BLOOD SUGAR CHECKED,AFTER EXPLANATION SHE AGREED, BS -135, INSULIN GIVEN PER SCALE, GIVEN EXPLANATION THAT HER INSULIN INJECTION WILL BE GIVEN, SHE AGREED AND COOPERATE.
--- NOTE | 2021-09-12 01:11 | NUR ---
RN NOTES: AT 2200 AWAKE IN BETWEEN, NEEDS ANTICIPATED, ABLE TO MAKE NEEDS KNOWN, COOPERATIVE, NO SIGN OF AGGRESSIVE BEHAVIOR, KEPT MONITORED. -AT 2300 ASLEEP AT SHORT INTERVALS.
--- NOTE | 2021-09-12 06:02 | NUR ---
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 --ABLE TO DO SACRAL DRESSING AND CHANGE HER INCONTINENT PAD, SHE REFUSED DRESSING ON THE RIGHT AND LEFT FOOT.CONTINUE OFF LOADING.
[2021-09-12 06:44] LABS: BASOPHILS % (AUTO) 0.1 % (0.0-2.0); EOSINOPHILS % (AUTO) 0.9 % (0.0-6.0); HEMATOCRIT 28 % (33-45); LYMPHOCYTES # (AUTO) 1.1 K/uL (0.8-4.8); LYMPHOCYTES % (AUTO) 8.2 % (20.0-44.0); MEAN CORPUSCULAR HGB CONC 32 g/dl (31.0-36.0); MEAN CORPUSCULAR VOLUME 93 fL (82-100); MONOCYTES # (AUTO) 1.5 K/uL (0.1-1.30); MONOCYTES % (AUTO) 11.2 % (2.0-12.0); NEUTROPHILS # (AUTO) 10.5 K/uL (1.8-8.9); NEUTROPHILS % (AUTO) 79.6 % (43.0-81.0); PLATELET COUNT (AUTO) 273 K/uL (150-450); RED BLOOD CELL COUNT(AUTO) 3.02 MIL/uL (4.0-5.2); WHITE BLOOD COUNT (AUTO) 13.2 K/uL (4.3-11.0)
--- NOTE | 2021-09-12 06:52 | NUR ---
RN NOTES: RN EXPLAINED IF WE CAN GET HER BLOOD SUGAR CHECK, SHE SAID "NO, PLEASE DO NOT DISTURBED MY SLEEP, GO AWAY",WILL ENDORSED TO CHECK ON THE NEXT SHIFT.
--- NOTE | 2021-09-12 07:08 | NUR ---
MS RN NOTES - OPENING REPORT RECEIVED FROM PM RN AT BEDSIDE. Pt IN NAD AT THIS TIME. VSS. EYES CLOSED. RR EVEN AND UNLABORED.
[2021-09-12 07:21] LABS: CALCIUM, SERUM 7.9 mg/dL (8.5-10.1); CARBON DIOXIDE 26 mmol/L (21-32); CHLORIDE 107 mmol/L (98-107); CREATININE 1.6 mg/dL (0.6-1.3); GLUCOSE 146 mg/dL (74-106); MAGNESIUM 1.9 mg/dL (1.8-2.4); PHOSPHORUS 2.3 mg/dL (2.5-4.9); POTASSIUM 3.4 mmol/L (3.5-5.1); SODIUM SERUM 141 mmol/L (136-145); UREA NITROGEN, BLOOD 31 mg/dL (7-18)
--- NOTE | 2021-09-12 07:44 | NUR ---
RN NOTES: FOR LABS THIS MORNING,ASLEEP, IVF CONTINUE, NEEDS ANTICIPATED, ENDORSED FOR CONTINUITY OF CARE.
[2021-09-12] MEDS: AMLODIPINE BESYLATE 10 MG TABLET PO SCH (08:33)
[2021-09-12] MEDS: EZETIMIBE 10 MG TABLET PO SCH (08:34)
[2021-09-12] MEDS: LEVOTHYROXINE SODIUM 25 MCG TABLET PO SCH (08:34)
[2021-09-12] MEDS: CLOPIDOGREL BISULFATE 75 MG TABLET PO SCH (08:35)
[2021-09-12] MEDS: CARVEDILOL 6.25 MG TABLET PO SCH ×2 (08:35→16:43)
[2021-09-12] MEDS: BLOOD SUGAR DIAGNOSTIC 1 EACH STRIP IN SCH ×4 (08:45→22:37)
[2021-09-12] MEDS: INSULIN REGULAR, HUMAN 100 UNIT/ML 3 ML VIAL SQ PRN ×4 (08:47→22:37)
[2021-09-12] MEDS: GLUCERNA SHAKE 237 ML CAN PO SCH ×2 (08:47→16:42)
[2021-09-12] MEDS: DAKINS QUARTER STRENGTH (0.125%) 480 ML BOTTLE TOP SCH (08:50)
[2021-09-12] MEDS: MINERAL OIL/PETROLATUM,WHITE 120 GM JAR TP SCH (08:51)
[2021-09-12] MEDS: Z GUARD REMEDY 2 OZ OINT TP PRN ×2 (08:51→09:23)
[2021-09-12] MEDS: AMMONIUM LACTATE 227 GM BOTTLE TP SCH ×2 (08:52→16:44)
[2021-09-12] MEDS ORDERED: POTASSIUM CHLORIDE 10 MEQ TABLET.SA PO ONE (09:30)
[2021-09-12] MEDS: Z GUARD REMEDY 2 OZ OINT TP SCH (09:37)
[2021-09-12 11:13] LABS: BILIRUBIN,URINE NEGATIVE (NEGATIVE); COLOR,URINE YELLOW (YELLOW); LEUKOCYTE ESTERASE ,URINE NEGATIVE (NEGATIVE); NITRITE, URINE NEGATIVE (NEGATIVE); PROTEIN,URINE NEGATIVE (NEGATIVE); UGLUCOSE 100 MG/DL mg/dL (NEGATIVE); UROBILINOGEN,URINE 0.2 EU/dL (0.2)
[2021-09-12 12:08] LABS: BACTERIA,URINE Few /HPF (None Seen); WBC,URINE 0-2 /HPF (0-3)
[2021-09-12 12:09] LABS: RBC,URINE 0-4 /HPF (0-2); SQUAMOUS EPITHELIAL CELL,UR Few /HPF (None Seen)
[2021-09-12] MEDS: IV D5W 1,000 ML IV PRN (13:19)
--- NOTE | 2021-09-12 15:15 | NUR ---
MS RN NOTES: WOUND CARE FOR SACRUM PROVIDED. WOUND BED PRESENTS BEEFY RED IN APPEARANCE. SLOUGH PRESENT AT WOUND EDGES. NO ERYTHEMA OR HEAT PRESENT OUTSIDE WOUND BORDERS. WOUND CLEANSED AND PACKED PER MD ORDERS. Pt. STATES MINIMAL PAIN TO SACRUM DURING AND S/P TX.
[2021-09-12] MEDS ORDERED: K PHOS NEUTRAL 250 MG TABLET PO ONE (15:30)
[2021-09-12] MEDS: ATORVASTATIN 10 MG TABLET PO SCH (17:16)
--- NOTE | 2021-09-12 19:45 | NUR ---
MS RN NOTE RECEIVED PATIENT IN BED WITH EYES CLOSED, A/OX1-2. ABLE TO MAKE NEEDS KNOWN. NO S/S OF APPARENT DISTRESS. NO C/O PAIN AT THIS TIME. IV D5 RUNNING @50ML/HR. DAVIS DRAINING DARM HUNG URINE. WILL CONTINUE WITH PLAN OF CARE.
[2021-09-12 20:23] VITALS: BP 143/69
[2021-09-12] MEDS: CEFTRIAXONE 1 G in IV D5W 50 ML IV SCH (20:28)
--- NOTE | 2021-09-12 22:37 | NUR ---
MS RN NOTE BLOOD SUGAR 101. NO COVERAGE.
[2021-09-13] MEDS: BLOOD SUGAR DIAGNOSTIC 1 EACH STRIP IN SCH ×2 (06:36→11:51)
[2021-09-13] MEDS: INSULIN REGULAR, HUMAN 100 UNIT/ML 3 ML VIAL SQ PRN ×2 (06:36→11:53)
--- NOTE | 2021-09-13 06:36 | NUR ---
MS RN NOTE BLOOD SUGAR 108. NO COVERAGE NEEDED.
[2021-09-13 06:47] LABS: BASOPHILS % (AUTO) 0.1 % (0.0-2.0); EOSINOPHILS % (AUTO) 0.7 % (0.0-6.0); HEMATOCRIT 29 % (33-45); HEMOGLOBIN 9.1 g/dL (11.5-14.8); LYMPHOCYTES # (AUTO) 1.1 K/uL (0.8-4.8); LYMPHOCYTES % (AUTO) 9.1 % (20.0-44.0); MEAN CORPUSCULAR HGB CONC 32 g/dl (31.0-36.0); MEAN CORPUSCULAR VOLUME 94 fL (82-100); MONOCYTES # (AUTO) 1.6 K/uL (0.1-1.30); MONOCYTES % (AUTO) 12.8 % (2.0-12.0); NEUTROPHILS # (AUTO) 9.4 K/uL (1.8-8.9); NEUTROPHILS % (AUTO) 77.3 % (43.0-81.0); PLATELET COUNT (AUTO) 267 K/uL (150-450); RED BLOOD CELL COUNT(AUTO) 3.07 MIL/uL (4.0-5.2); WHITE BLOOD COUNT (AUTO) 12.1 K/uL (4.3-11.0)
--- NOTE | 2021-09-13 06:56 | NUR ---
MS RN NOTE PATIENT IN BED A/OX2-3, TIMES OF CONFUSION AND FORGETFULNESS. NO S/S OF APPARENT DISTRESS. NO C/O PAIN. IV D5 RUNNING AT 50 CC/HR. WOUND TREATMENT DONE, PICTURES TAKEN. ALL NEEDS ATTENDED. ALL SCHEDULED MEDICATIONS ADMINISTERED. DAVIS CATHETER DRAINING DARK HUNG URINE WITH OUTPUT OF 50ML. SAFETY KEPT IN PLACE THE WHOLE SHIFT. WILL ENDORSE CARE TO MORNING SHIFT RN FOR CONT. OF CARE.
--- NOTE | 2021-09-13 07:51 | NUR ---
MS RN OPENING NOTES RECEIVED PATIENT IN BED A/OX2-3, NO S/S OF DISTRESS OR C/O PAIN AT THIS TIME. R.UA ML HAS D5 RUNNING AT 50 ml/HR. ALL NEEDS MET AT THIS TIME. SAFETY MEASURES KEPT IN PLACE: BED IS LOCKED AND IN LOWEST POSITION, 2X SIDE RAILS UP, TABLE AND CALL LIGHT WITHIN REACH. WILL CONTINUE TO MONITOR THROUGHOUT THE SHIFT
[2021-09-13 07:56] LABS: CALCIUM, SERUM 7.8 mg/dL (8.5-10.1); CARBON DIOXIDE 26 mmol/L (21-32); CHLORIDE 105 mmol/L (98-107); CREATININE 1.7 mg/dL (0.6-1.3); GLUCOSE 115 mg/dL (74-106); MAGNESIUM 1.7 mg/dL (1.8-2.4); POTASSIUM 3.5 mmol/L (3.5-5.1); SODIUM SERUM 140 mmol/L (136-145); UREA NITROGEN, BLOOD 27 mg/dL (7-18)
[2021-09-13 08:00] VITALS: BP 133/51
[2021-09-13] MEDS: LEVOTHYROXINE SODIUM 25 MCG TABLET PO SCH (08:29)
[2021-09-13] MEDS: CLOPIDOGREL BISULFATE 75 MG TABLET PO SCH (08:53)
[2021-09-13] MEDS: EZETIMIBE 10 MG TABLET PO SCH (08:53)
[2021-09-13] MEDS: CARVEDILOL 6.25 MG TABLET PO SCH (08:53)
[2021-09-13 08:55] VITALS: BP 133/51
[2021-09-13] MEDS: AMLODIPINE BESYLATE 10 MG TABLET PO SCH (08:55)
[2021-09-13] MEDS: GLUCERNA SHAKE 237 ML CAN PO SCH (09:02)
[2021-09-13] MEDS: DAKINS QUARTER STRENGTH (0.125%) 480 ML BOTTLE TOP SCH (09:03)
[2021-09-13] MEDS: MINERAL OIL/PETROLATUM,WHITE 120 GM JAR TP SCH (09:04)
[2021-09-13] MEDS: Z GUARD REMEDY 2 OZ OINT TP SCH (09:04)
[2021-09-13] MEDS: AMMONIUM LACTATE 227 GM BOTTLE TP SCH (09:05)
[2021-09-13] MEDS ORDERED: Magnesium 1GM/D5W 100ML PREMIX 100 ML IV SCH (11:00)
[2021-09-13] MEDS: ACETAMINOPHEN 325 MG TABLET PO PRN (11:08)
[2021-09-13] MEDS: IV D5W 1,000 ML IV PRN (11:24)
[2021-09-13] MEDS ORDERED: AMMO225L14 TP (11:45)
[2021-09-13] MEDS ORDERED: SODI473S8 TOP (11:45)
[2021-09-13] MEDS ORDERED: IBUPROFEN 400 MG TABLET PO PRN (12:00)
--- NOTE | 2021-09-13 14:36 | NUR ---
MS RN NOTES- CALLED TO GIVE REPORT TO ANAY METZGER, NURSE UNABLE TO TAKE REPORT AT THIS TIME AND REQUESTED TO CALL BACK IN 15 MIN.
--- NOTE | 2021-09-13 15:30 | NUR ---
MS UNIT MANAGER NOTES PATIENT WAS DISCHARGED WITH STABLE VITAL SIGNS.NO S/SX OF DISTRESS NOTED. NO SOB. DISCHARGE SUMMARY REVIEWED AND SIGNED BY PATIENT. IV ACCESS AND ID BAND REMOVED, DAVIS CATHETER KEPT IN PLACE. ALL BELONGINGS RETURNED AND FORMED SIGNED BY 2 RNS, INCLUDING MYSELF AND TAO RAMOS. REPORT GIVEN TO TAO STAHL AT [facility]. PT WAS PICKED UP BY 2 EMT BY [facility]. OBSERVED PATIENT LEAVE THE UNIT AT THIS TIME.
== END 2021-09-13 23:03 | DRG 853 ==
LOC: ER 14:15 → TELE 17:13 → MED 09-08 12:00
PROVIDERS: ADMIT Nurse Practitioner Acute Care; ATTEND Nurse Practitioner Acute Care
PROC: 05H933Z Insertion of Infusion Device into Right Brachial Vein, Percutaneous Approach (ICD-10-PCS; principal; 2021-09-09)
PROC: 0KBP0ZZ Excision of Left Hip Muscle, Open Approach (ICD-10-PCS; 2021-09-11)
PROC: 0KBN0ZZ Excision of Right Hip Muscle, Open Approach (ICD-10-PCS; 2021-09-11)
DX: A41.9 Sepsis, unspecified organism (principal); L89.154 Pressure ulcer of sacral region, stage 4; N17.0 Acute kidney failure with tubular necrosis; E44.1 Mild protein-calorie malnutrition; M62.82 Rhabdomyolysis; N39.0 Urinary tract infection, site not specified; E87.0 Hyperosmolality and hypernatremia; E86.0 Dehydration; Z79.02 Long term (current) use of antithrombotics/antiplatelets; Z79.899 Other long term (current) drug therapy; Z89.429 Acquired absence of other toe(s), unspecified side; E87.5 Hyperkalemia; D64.9 Anemia, unspecified; E03.9 Hypothyroidism, unspecified; R74.01 Elevation of levels of liver transaminase levels; E11.51 Type 2 diabetes mellitus with diabetic peripheral angiopathy without gangrene; E11.621 Type 2 diabetes mellitus with foot ulcer; L84 Corns and callosities; L85.3 Xerosis cutis; Z74.09 Other reduced mobility; T14.8XXA Other injury of unspecified body region, initial encounter; X58.XXXA Exposure to other specified factors, initial encounter; Y92.9 Unspecified place or not applicable; I67.2 Cerebral atherosclerosis; L97.519 Non-pressure chronic ulcer of other part of right foot with unspecified severity; E11.42 Type 2 diabetes mellitus with diabetic polyneuropathy
CPT/HCPCS: 36415; 70450-TC; 71045-TC; 76770-TC; 80048-TC; 80061-TC; 80076-TC; 81001; 82550-TC; 82553; 82962-TC; 83605-TC; 83735-TC; 83880; 84100-TC; 84439-TC; 84443-TC; 84484-TC; 85025-TC; 85730-TC; 87070-TC; 87081-TC; 87086-TC; 87186-TC; 93307-TC; 97110-TC; 97112-TC; 97116-TC; 97530-TC; A6253; A6403; C9803; G0378; J0692; J0696; J1644; J1650; J1815; J1940; J3370; J3475; J3490; J7030; J7060; J7070

== ENCOUNTER 2023-06-22 21:13 | Inpatient (IN) | payer MEDICARE, OTHER ==
[~2023-06-22] VITALS: Ht 172.7 cm; Wt 56.7 kg
[~2023-06-22 21:13] MED LIST: AMLO-213 PO; AMMO225L14 TP; CARV6.252 PO; CLOP75TA15 PO; EZET10TA32 PO; LEVO112T7 PO; PRAV20TA4 PO; SODI473S8 TOP
[2023-06-22] MEDS ORDERED: IV NS 0.9% 1,000 ML BAG IV ONE (22:00)
[2023-06-22 22:48] LABS: BASOPHILS # (AUTO) 0.1 K/uL (0.0-0.2); EOSINOPHILS # (AUTO) 0.1 K/uL (0.0-0.7); EOSINOPHILS % (AUTO) 1.2 % (0.0-6.0); HEMATOCRIT 40 % (33-45); LYMPHOCYTES # (AUTO) 1.7 K/uL (0.8-4.8); LYMPHOCYTES % (AUTO) 19.4 % (20.0-44.0); MEAN CORPUSCULAR HEMOGLOBIN 28 PG (26.0-33.0); MEAN CORPUSCULAR HGB CONC 33 g/dl (31.0-36.0); MEAN CORPUSCULAR VOLUME 87 fL (82-100); MONOCYTES # (AUTO) 0.5 K/uL (0.1-1.30); MONOCYTES % (AUTO) 5.3 % (2.0-12.0); NEUTROPHILS # (AUTO) 6.5 K/uL (1.8-8.9); NEUTROPHILS % (AUTO) 73.1 % (43.0-81.0); PLATELET COUNT (AUTO) 304 K/uL (150-450); RED CELL DISTRIBUTION WIDTH 18.6 % (11.5-15.0); WHITE BLOOD COUNT (AUTO) 8.9 K/uL (4.3-11.0)
[2023-06-22 23:06] LABS: ALANINE AMINOTRANSFERASE 93 U/L (12-78); ALBUMIN 2.6 g/dL (3.4-5.0); ALKALINE PHOSPHATASE 188 U/L (46-116); ASPARTATE AMINOTRANSFERASE 205 U/L (15-37); BILIRUBIN,DIRECT 0.2 mg/dL (0.0-0.2); BILIRUBIN,TOTAL 0.7 mg/dL (0.2-1.0); CALCIUM, SERUM 6.7 mg/dL (8.5-10.1); CARBON DIOXIDE 20 mmol/L (21-32); CHLORIDE 110 mmol/L (98-107); CREATININE 2.2 mg/dL (0.6-1.3); GLUCOSE 65 mg/dL (74-106); SODIUM SERUM 142 mmol/L (136-145); TOTAL PROTEIN, SERUM 6.1 g/dL (6.4-8.2); UREA NITROGEN, BLOOD 27 mg/dL (7-18)
[2023-06-22 23:11] LABS: POTASSIUM 1.3 mmol/L (3.5-5.1)
[2023-06-22] MEDS ORDERED: ONDANSETRON HCL/PF 4 MG/2 ML VIAL IVP PRN (23:30)
[2023-06-22] MEDS: POTASSIUM CL. PREMIX PERIPHER. 50 ML IV SCH (23:30)
[2023-06-22] MEDS ORDERED: DEXTROSE 50%-WATER 50 ML DISP.SYRIN IV PRN (23:30)
[2023-06-22] MEDS ORDERED: MAGNESIUM HYDROXIDE 30 ML UDC PO PRN (23:30)
[2023-06-22] MEDS ORDERED: MAG HYDROX/AL HYDROX/SIMETH 30 ML UDC PO PRN (23:30)
[2023-06-22] MEDS ORDERED: ENOXAPARIN SODIUM 60 MG/0.6 ML DISP.SYRIN SQ ONE (23:30)
[2023-06-22] MEDS ORDERED: Z GUARD REMEDY 4 OZ OINT TP PRN (23:30)
[2023-06-22] MEDS ORDERED: POTASSIUM CHLORIDE 20 MEQ TAB.PRT.SR PO ONE (23:30)
[2023-06-22] MEDS ORDERED: ASPIRIN 81 MG TAB.CHEW PO ONE ×2 (23:30)
[2023-06-22 23:34] LABS: MAGNESIUM 1.4 mg/dL (1.8-2.4); PHOSPHORUS 1.3 mg/dL (2.5-4.9)
[2023-06-23] MEDS: POTASSIUM CL. PREMIX PERIPHER. 50 ML IV SCH ×17 (00:30→22:39)
[2023-06-23] MEDS ORDERED: POTASSIUM CL. PREMIX PERIPHER. 50 ML ONE ×2 (01:37→02:35)
[2023-06-23] MEDS ORDERED: ASPIRIN 81 MG TAB.CHEW ONE (01:52)
[2023-06-23] MEDS ORDERED: Magnesium 1 GM/2 ML VIAL IV ONE (02:00)
[2023-06-23] MEDS ORDERED: Magnesium 1GM/D5W 100ML PREMIX 200 ML IV ONE (02:05)
[2023-06-23] MEDS: Magnesium 1GM/D5W 100ML PREMIX 100 ML IV SCH ×2 (02:30→03:30)
[2023-06-23 03:15] VITALS: BP 121/41; TEMP 97.6; O2SAT 100
[2023-06-23] MEDS: IV NS 0.9% 1,000 ML IV PRN ×2 (03:32→11:02)
[2023-06-23] MEDS: ATORVASTATIN 40 MG TABLET PO SCH ×2 (06:26→21:32)
[2023-06-23 07:25] LABS: BASOPHILS % (AUTO) 0.4 % (0.0-2.0); EOSINOPHILS # (AUTO) 0.1 K/uL (0.0-0.7); EOSINOPHILS % (AUTO) 0.9 % (0.0-6.0); HEMATOCRIT 37 % (33-45); HEMOGLOBIN 12.1 g/dL (11.5-14.8); LYMPHOCYTES # (AUTO) 1.3 K/uL (0.8-4.8); LYMPHOCYTES % (AUTO) 14.9 % (20.0-44.0); MEAN CORPUSCULAR HEMOGLOBIN 29 PG (26.0-33.0); MEAN CORPUSCULAR HGB CONC 33 g/dl (31.0-36.0); MEAN CORPUSCULAR VOLUME 87 fL (82-100); MONOCYTES # (AUTO) 0.7 K/uL (0.1-1.30); MONOCYTES % (AUTO) 8.4 % (2.0-12.0); NEUTROPHILS # (AUTO) 6.5 K/uL (1.8-8.9); NEUTROPHILS % (AUTO) 75.4 % (43.0-81.0); PLATELET COUNT (AUTO) 261 K/uL (150-450); RED CELL DISTRIBUTION WIDTH 18.5 % (11.5-15.0); WHITE BLOOD COUNT (AUTO) 8.6 K/uL (4.3-11.0)
[2023-06-23] MEDS: BLOOD SUGAR DIAGNOSTIC 1 EACH STRIP IN SCH ×4 (07:47→21:42)
[2023-06-23 08:00] VITALS: BP 108/43; TEMP 98; O2SAT 95
[2023-06-23 08:03] LABS: CALCIUM, SERUM 6.3 mg/dL (8.5-10.1); CARBON DIOXIDE 21 mmol/L (21-32); CHLORIDE 114 mmol/L (98-107); CREATININE 2.1 mg/dL (0.6-1.3); GLUCOSE 104 mg/dL (74-106); MAGNESIUM 1.9 mg/dL (1.8-2.4); PHOSPHORUS 1.1 mg/dL (2.5-4.9); SODIUM SERUM 146 mmol/L (136-145); UREA NITROGEN, BLOOD 23 mg/dL (7-18)
[2023-06-23 08:08] LABS: POTASSIUM 1.9 mmol/L (3.5-5.1)
[2023-06-23] MEDS: PANTOPRAZOLE 40 MG TABLET.DR PO SCH (08:13)
[2023-06-23] MEDS: EZETIMIBE 10 MG TABLET PO SCH (08:14)
[2023-06-23] MEDS: LEVOTHYROXINE SODIUM 112 MCG TABLET PO SCH (08:14)
[2023-06-23] MEDS: CLOPIDOGREL BISULFATE 75 MG TABLET PO SCH (08:14)
[2023-06-23 08:55] LABS: MAGNESIUM 2.1 mg/dL (1.8-2.4); PHOSPHORUS 1.3 mg/dL (2.5-4.9)
[2023-06-23 09:08] LABS: THYROID STIMULATING HORMONE 48.896 uIU/mL (0.358-3.74)
[2023-06-23] MEDS ORDERED: POTASSIUM CHLORIDE 10 MEQ/50 ML PREMIXED IVPB FOR PERIPHERAL LINE IV ONE ×3 (10:00→15:30)
[2023-06-23] MEDS ORDERED: K PHOS NEUTRAL 250 MG TABLET PO ONE (10:00)
[2023-06-23 12:00] VITALS: BP 125/42; TEMP 97.8; O2SAT 93
[2023-06-23 16:00] VITALS: BP 124/48; TEMP 97.8; O2SAT 98
[2023-06-23] MEDS ORDERED: ASPI-1420 PO (16:39)
[2023-06-23] MEDS ORDERED: ALPR0.255 PO (16:39)
[2023-06-23] MEDS ORDERED: PRAVASTATIN SODIUM 20 MG TABLET PO SCH (18:00)
[2023-06-23 20:00] VITALS: BP 124/53; TEMP 98.1; O2SAT 98
[2023-06-23] MEDS: ENOXAPARIN SODIUM 60 MG/0.6 ML DISP.SYRIN SQ SCH (21:32)
[2023-06-23] MEDS: INSULIN REGULAR, HUMAN 100 UNIT/ML 3 ML VIAL SQ PRN (21:43)
[2023-06-24] VITALS: BP 126/51; TEMP 98; O2SAT 98
[2023-06-24] MEDS: IV NS 0.9% 1,000 ML IV PRN (02:21)
[2023-06-24 04:00] VITALS: BP 128/59; TEMP 98.2; O2SAT 96
[2023-06-24] MEDS: POTASSIUM CL. PREMIX PERIPHER. 50 ML IV SCH ×6 (04:10→09:44)
[2023-06-24 07:06] LABS: BASOPHILS % (AUTO) 0.3 % (0.0-2.0); EOSINOPHILS # (AUTO) 0.1 K/uL (0.0-0.7); EOSINOPHILS % (AUTO) 0.4 % (0.0-6.0); HEMATOCRIT 34 % (33-45); HEMOGLOBIN 10.9 g/dL (11.5-14.8); LYMPHOCYTES # (AUTO) 1.2 K/uL (0.8-4.8); LYMPHOCYTES % (AUTO) 9.2 % (20.0-44.0); MEAN CORPUSCULAR HEMOGLOBIN 28 PG (26.0-33.0); MEAN CORPUSCULAR HGB CONC 32 g/dl (31.0-36.0); MEAN CORPUSCULAR VOLUME 89 fL (82-100); MONOCYTES % (AUTO) 8.1 % (2.0-12.0); NEUTROPHILS # (AUTO) 10.3 K/uL (1.8-8.9); PLATELET COUNT (AUTO) 237 K/uL (150-450); RED BLOOD CELL COUNT(AUTO) 3.83 MIL/uL (4.0-5.2); RED CELL DISTRIBUTION WIDTH 19.5 % (11.5-15.0); WHITE BLOOD COUNT (AUTO) 12.5 K/uL (4.3-11.0)
[2023-06-24 07:20] LABS: ALANINE AMINOTRANSFERASE 70 U/L (12-78); ALBUMIN 1.7 g/dL (3.4-5.0); ALKALINE PHOSPHATASE 157 U/L (46-116); ASPARTATE AMINOTRANSFERASE 121 U/L (15-37); BILIRUBIN,TOTAL 0.3 mg/dL (0.2-1.0); CALCIUM, SERUM 6.4 mg/dL (8.5-10.1); CARBON DIOXIDE 16 mmol/L (21-32); CHLORIDE 117 mmol/L (98-107); CREATININE 1.8 mg/dL (0.6-1.3); GLUCOSE 109 mg/dL (74-106); MAGNESIUM 1.6 mg/dL (1.8-2.4); PHOSPHORUS 1.1 mg/dL (2.5-4.9); SODIUM SERUM 146 mmol/L (136-145); TOTAL PROTEIN, SERUM 4.4 g/dL (6.4-8.2); UREA NITROGEN, BLOOD 21 mg/dL (7-18)
[2023-06-24] MEDS: PANTOPRAZOLE 40 MG TABLET.DR PO SCH (07:20)
[2023-06-24] MEDS: LEVOTHYROXINE SODIUM 112 MCG TABLET PO SCH (07:20)
[2023-06-24 07:27] LABS: CREATINE KINASE, TOTAL 7218 U/L (26-192); T4 (THYROXINE) 3.2 ug/dL (4.7-13.3); THYROID STIMULATING HORMONE 45.456 uIU/mL (0.358-3.74)
[2023-06-24] MEDS: BLOOD SUGAR DIAGNOSTIC 1 EACH STRIP IN SCH ×4 (07:34→22:00)
[2023-06-24 07:36] LABS: POTASSIUM 1.9 mmol/L (3.5-5.1)
[2023-06-24] MEDS ORDERED: Potassium Chloride 40 MEQ in IV NS 0.9% 1,000 ML IV PRN (07:50)
[2023-06-24 08:00] VITALS: BP 147/53; TEMP 98.2; O2SAT 98
[2023-06-24] MEDS: CLOPIDOGREL BISULFATE 75 MG TABLET PO SCH (08:31)
[2023-06-24] MEDS: EZETIMIBE 10 MG TABLET PO SCH (08:32)
[2023-06-24] MEDS ORDERED: K PHOS NEUTRAL 250 MG TABLET PO ONE (09:30)
[2023-06-24] MEDS ORDERED: Calcium Gluconate 1GM/10ML 4.65 MEQ in IV NS 0.9% 100 ML IV ONE (09:30)
[2023-06-24] MEDS: Magnesium 1GM/D5W 100ML PREMIX 100 ML IV SCH ×2 (10:20→11:08)
[2023-06-24] MEDS: POTASSIUM CHLORIDE 20 MEQ TAB.PRT.SR PO SCH ×2 (11:08→12:38)
[2023-06-24 12:00] VITALS: BP 130/46; TEMP 98.1; O2SAT 98
[2023-06-24] MEDS: LEVOTHYROXINE INJ 100 MCG VIAL IV SCH (12:39)
[2023-06-24 13:43] LABS: CALCIUM, SERUM 6.5 mg/dL (8.5-10.1); CARBON DIOXIDE 17 mmol/L (21-32); CHLORIDE 114 mmol/L (98-107); CREATININE 1.7 mg/dL (0.6-1.3); GLUCOSE 137 mg/dL (74-106); SODIUM SERUM 144 mmol/L (136-145); UREA NITROGEN, BLOOD 19 mg/dL (7-18)
[2023-06-24 16:00] VITALS: BP 130/47; TEMP 98.5; O2SAT 98
[2023-06-24 20:00] VITALS: BP 135/48; TEMP 98.4; O2SAT 100
[2023-06-24] MEDS: ATORVASTATIN 40 MG TABLET PO SCH (21:33)
[2023-06-24] MEDS: ENOXAPARIN SODIUM 60 MG/0.6 ML DISP.SYRIN SQ SCH (21:40)
[2023-06-24] MEDS: ALPRAZOLAM 0.25 MG TABLET PO PRN (23:34)
[2023-06-25] VITALS: BP 143/45; TEMP 98.2; O2SAT 97
[2023-06-25 04:00] VITALS: BP 115/46; TEMP 97.8; O2SAT 97
[2023-06-25] MEDS: LEVOTHYROXINE INJ 100 MCG VIAL IV SCH (07:41)
[2023-06-25] MEDS: PANTOPRAZOLE 40 MG TABLET.DR PO SCH (07:42)
[2023-06-25] MEDS: BLOOD SUGAR DIAGNOSTIC 1 EACH STRIP IN SCH ×4 (07:55→21:13)
[2023-06-25 08:00] VITALS: BP 116/41; TEMP 98.2; O2SAT 94
[2023-06-25] MEDS: CLOPIDOGREL BISULFATE 75 MG TABLET PO SCH (08:43)
[2023-06-25] MEDS: EZETIMIBE 10 MG TABLET PO SCH (08:43)
[2023-06-25] MEDS: Potassium Chloride 40 MEQ in IV NS 0.9% 1,000 ML IV SCH ×2 (11:12→23:52)
[2023-06-25 11:14] LABS: LYMPHOCYTES # (AUTO) 1.5 K/uL (0.8-4.8); MEAN CORPUSCULAR HGB CONC 33 g/dl (31.0-36.0); MONOCYTES # (AUTO) 1.3 K/uL (0.1-1.30); NEUTROPHILS # (AUTO) 10.8 K/uL (1.8-8.9); PLATELET COUNT (AUTO) 216 K/uL (150-450)
[2023-06-25 11:16] LABS: BASOPHILS % (AUTO) 0.2 % (0.0-2.0); EOSINOPHILS % (AUTO) 0.3 % (0.0-6.0); HEMATOCRIT 36 % (33-45); HEMOGLOBIN 11.5 g/dL (11.5-14.8); LYMPHOCYTES % (AUTO) 11.1 % (20.0-44.0); MEAN CORPUSCULAR HEMOGLOBIN 29 PG (26.0-33.0); MEAN CORPUSCULAR VOLUME 88 fL (82-100); MONOCYTES % (AUTO) 9.2 % (2.0-12.0); NEUTROPHILS % (AUTO) 79.2 % (43.0-81.0); RED BLOOD CELL COUNT(AUTO) 4.03 MIL/uL (4.0-5.2); RED CELL DISTRIBUTION WIDTH 19.9 % (11.5-15.0); WHITE BLOOD COUNT (AUTO) 13.7 K/uL (4.3-11.0)
[2023-06-25 11:26] LABS: CALCIUM, SERUM 6.6 mg/dL (8.5-10.1); CARBON DIOXIDE 15 mmol/L (21-32); CHLORIDE 115 mmol/L (98-107); CREATININE 1.6 mg/dL (0.6-1.3); GLUCOSE 96 mg/dL (74-106); MAGNESIUM 1.8 mg/dL (1.8-2.4); PHOSPHORUS 1.6 mg/dL (2.5-4.9); SODIUM SERUM 143 mmol/L (136-145); UREA NITROGEN, BLOOD 17 mg/dL (7-18)
[2023-06-25 11:31] LABS: POTASSIUM 1.9 mmol/L (3.5-5.1)
[2023-06-25 12:00] VITALS: BP 124/43; TEMP 98; O2SAT 94
[2023-06-25] MEDS: POTASSIUM CL. PREMIX PERIPHER. 50 ML IV SCH ×8 (15:39→22:31)
[2023-06-25 16:00] VITALS: BP 121/44; TEMP 98.2; O2SAT 94
[2023-06-25] MEDS ORDERED: NEUTRA PHOS 1 POWD.PACKET PO ONE (17:00)
[2023-06-25] MEDS: VANCOMYCIN HCL 125 MG/2.5 ML ORAL.SUSP PO SCH ×2 (18:28→23:33)
[2023-06-25 20:00] VITALS: BP 112/42; TEMP 98; O2SAT 99
[2023-06-25] MEDS: METRONIDAZOLE 500 MG TABLET PO SCH (20:52)
[2023-06-25] MEDS: ENOXAPARIN SODIUM 60 MG/0.6 ML DISP.SYRIN SQ SCH (20:55)
[2023-06-25] MEDS: ATORVASTATIN 40 MG TABLET PO SCH (21:29)
[2023-06-25] MEDS: ALPRAZOLAM 0.25 MG TABLET PO PRN (21:39)
[2023-06-26] VITALS: BP 124/46; TEMP 98.8; O2SAT 100
[2023-06-26] MEDS: METRONIDAZOLE 500 MG TABLET PO SCH ×3 (04:06→21:41)
[2023-06-26 04:49] VITALS: BP 128/40; TEMP 97.9; O2SAT 100
[2023-06-26] MEDS: VANCOMYCIN HCL 125 MG/2.5 ML ORAL.SUSP PO SCH ×3 (05:01→18:00)
[2023-06-26] MEDS: BLOOD SUGAR DIAGNOSTIC 1 EACH STRIP IN SCH ×4 (05:45→22:51)
[2023-06-26 06:46] LABS: BASOPHILS % (AUTO) 0.3 % (0.0-2.0); EOSINOPHILS % (AUTO) 0.4 % (0.0-6.0); HEMATOCRIT 36 % (33-45); HEMOGLOBIN 11.3 g/dL (11.5-14.8); LYMPHOCYTES # (AUTO) 1.3 K/uL (0.8-4.8); LYMPHOCYTES % (AUTO) 10.9 % (20.0-44.0); MEAN CORPUSCULAR HEMOGLOBIN 29 PG (26.0-33.0); MEAN CORPUSCULAR HGB CONC 32 g/dl (31.0-36.0); MEAN CORPUSCULAR VOLUME 91 fL (82-100); MONOCYTES # (AUTO) 1.2 K/uL (0.1-1.30); MONOCYTES % (AUTO) 10.8 % (2.0-12.0); NEUTROPHILS % (AUTO) 77.6 % (43.0-81.0); PLATELET COUNT (AUTO) 208 K/uL (150-450); RED BLOOD CELL COUNT(AUTO) 3.93 MIL/uL (4.0-5.2); RED CELL DISTRIBUTION WIDTH 20.5 % (11.5-15.0); WHITE BLOOD COUNT (AUTO) 11.6 K/uL (4.3-11.0)
[2023-06-26 06:57] LABS: CARBON DIOXIDE 14 mmol/L (21-32); CHLORIDE 117 mmol/L (98-107); CREATININE 1.5 mg/dL (0.6-1.3); GLUCOSE 100 mg/dL (74-106); MAGNESIUM 1.5 mg/dL (1.8-2.4); PHOSPHORUS 2.2 mg/dL (2.5-4.9); SODIUM SERUM 144 mmol/L (136-145); UREA NITROGEN, BLOOD 17 mg/dL (7-18)
[2023-06-26 07:00] LABS: POTASSIUM 2.5 mmol/L (3.5-5.1)
[2023-06-26 07:06] LABS: CREATININE KINASE (CK),MB 11.4 ng/mL (0.0-5.3); PTH, INTACT 149 pg/mL (15-65)
[2023-06-26 08:00] VITALS: BP 130/41; TEMP 97.7; O2SAT 100
[2023-06-26] MEDS ORDERED: K PHOS NEUTRAL 250 MG TABLET PO ONE ×2 (08:00→09:00)
[2023-06-26] MEDS ORDERED: MAGNESIUM OXIDE 400 MG TABLET PO ONE (08:00)
[2023-06-26] MEDS: LEVOTHYROXINE INJ 100 MCG VIAL IV SCH (08:42)
[2023-06-26] MEDS: PANTOPRAZOLE 40 MG TABLET.DR PO SCH (08:42)
[2023-06-26] MEDS: EZETIMIBE 10 MG TABLET PO SCH (09:28)
[2023-06-26] MEDS: CLOPIDOGREL BISULFATE 75 MG TABLET PO SCH (09:28)
[2023-06-26] MEDS: Magnesium 1GM/D5W 100ML PREMIX 100 ML IV SCH ×2 (09:30→11:57)
[2023-06-26] MEDS: POTASSIUM CL. PREMIX PERIPHER. 50 ML IV SCH ×4 (09:35→17:55)
[2023-06-26 12:00] VITALS: BP 106/44; TEMP 98.4; O2SAT 100
[2023-06-26] MEDS: PROSOURCE / PROSTAT (PYXIS) 30 ML UDC PO SCH ×2 (12:05→18:01)
[2023-06-26] MEDS: GLUCERNA SHAKE 237 ML CAN PO SCH ×2 (12:17→18:02)
[2023-06-26 12:24] LABS: CALCIUM, SERUM 7.3 mg/dL (8.5-10.1); CARBON DIOXIDE 14 mmol/L (21-32); CHLORIDE 118 mmol/L (98-107); CREATININE 1.6 mg/dL (0.6-1.3); GLUCOSE 117 mg/dL (74-106); SODIUM SERUM 143 mmol/L (136-145); UREA NITROGEN, BLOOD 17 mg/dL (7-18)
[2023-06-26 12:29] LABS: POTASSIUM 2.6 mmol/L (3.5-5.1)
[2023-06-26] MEDS: Potassium Chloride 40 MEQ in IV NS 0.9% 1,000 ML IV SCH (15:17)
[2023-06-26 16:00] VITALS: BP 139/39; TEMP 97.5; O2SAT 97
[2023-06-26] MEDS: FIDAXOMICIN 200 MG TABLET PO SCH (17:59)
[2023-06-26 20:00] VITALS: BP 129/47; TEMP 97.9; O2SAT 98
[2023-06-26 20:17] LABS: CALCIUM, SERUM 6.9 mg/dL (8.5-10.1); CARBON DIOXIDE 16 mmol/L (21-32); CHLORIDE 119 mmol/L (98-107); CREATININE 1.6 mg/dL (0.6-1.3); GLUCOSE 137 mg/dL (74-106); SODIUM SERUM 144 mmol/L (136-145); UREA NITROGEN, BLOOD 17 mg/dL (7-18)
[2023-06-26 20:19] LABS: POTASSIUM 2.8 mmol/L (3.5-5.1)
[2023-06-26] MEDS ORDERED: POTASSIUM CHLORIDE 20 MEQ TAB.PRT.SR PO ONE (21:00)
[2023-06-26] MEDS ORDERED: POTASSIUM CHLORIDE 10 MEQ/50 ML PREMIXED IVPB FOR PERIPHERAL LINE IV ONE ×2 (21:00)
[2023-06-26] MEDS: ALPRAZOLAM 0.25 MG TABLET PO PRN (21:40)
[2023-06-26] MEDS: ATORVASTATIN 40 MG TABLET PO SCH (21:41)
[2023-06-26] MEDS: ENOXAPARIN SODIUM 60 MG/0.6 ML DISP.SYRIN SQ SCH (21:45)
[2023-06-26] MEDS: INSULIN REGULAR, HUMAN 100 UNIT/ML 3 ML VIAL SQ PRN (22:52)
[2023-06-27] VITALS: BP 138/47; TEMP 98; O2SAT 99
[2023-06-27] MEDS: VANCOMYCIN HCL 125 MG/2.5 ML ORAL.SUSP PO SCH ×5 (00:40→23:21)
[2023-06-27] MEDS: ACETAMINOPHEN 325 MG TABLET PO PRN (00:49)
[2023-06-27] MEDS: Potassium Chloride 40 MEQ in IV NS 0.9% 1,000 ML IV SCH ×2 (02:54→15:32)
[2023-06-27 04:00] VITALS: BP 139/52; TEMP 97.9; O2SAT 98
[2023-06-27] MEDS: METRONIDAZOLE 500 MG TABLET PO SCH ×3 (05:29→21:23)
[2023-06-27 07:26] LABS: BASOPHILS % (AUTO) 0.5 % (0.0-2.0); EOSINOPHILS # (AUTO) 0.1 K/uL (0.0-0.7); EOSINOPHILS % (AUTO) 1.4 % (0.0-6.0); HEMATOCRIT 32 % (33-45); HEMOGLOBIN 10.4 g/dL (11.5-14.8); LYMPHOCYTES # (AUTO) 1.1 K/uL (0.8-4.8); LYMPHOCYTES % (AUTO) 14.5 % (20.0-44.0); MEAN CORPUSCULAR HEMOGLOBIN 29 PG (26.0-33.0); MEAN CORPUSCULAR HGB CONC 32 g/dl (31.0-36.0); MEAN CORPUSCULAR VOLUME 90 fL (82-100); MONOCYTES % (AUTO) 12.2 % (2.0-12.0); NEUTROPHILS # (AUTO) 5.6 K/uL (1.8-8.9); NEUTROPHILS % (AUTO) 71.4 % (43.0-81.0); PLATELET COUNT (AUTO) 209 K/uL (150-450); RED CELL DISTRIBUTION WIDTH 20.5 % (11.5-15.0); WHITE BLOOD COUNT (AUTO) 7.9 K/uL (4.3-11.0)
[2023-06-27 07:35] LABS: CALCIUM, SERUM 7.2 mg/dL (8.5-10.1); CARBON DIOXIDE 13 mmol/L (21-32); CHLORIDE 121 mmol/L (98-107); CREATININE 1.7 mg/dL (0.6-1.3); GLUCOSE 94 mg/dL (74-106); MAGNESIUM 1.7 mg/dL (1.8-2.4); PHOSPHORUS 2.2 mg/dL (2.5-4.9); POTASSIUM 3.6 mmol/L (3.5-5.1); SODIUM SERUM 144 mmol/L (136-145); UREA NITROGEN, BLOOD 18 mg/dL (7-18)
[2023-06-27 08:00] VITALS: BP 134/58; TEMP 98.1; O2SAT 96
[2023-06-27 08:07] LABS: *SPE A/G RATIO 0.9 (0.7-1.7); *SPE ALBUMIN 1.9 g/dL (2.9-4.4); *SPE ALPHA-1-GLOBULIN 0.2 g/dL (0.0-0.4); *SPE ALPHA-2-GLOBULIN 0.7 g/dL (0.4-1.0); *SPE BETA GLOBULIN 0.5 g/dL (0.7-1.3); *SPE GLOBULIN, TOTAL 2.1 g/dL (2.2-3.9); *SPE M-SPIKE Not Observed g/dL (Not Observed); *SPEGAMMA GLOBULIN 0.8 g/dL (0.4-1.8)
[2023-06-27] MEDS: PANTOPRAZOLE 40 MG TABLET.DR PO SCH (09:53)
[2023-06-27] MEDS: BLOOD SUGAR DIAGNOSTIC 1 EACH STRIP IN SCH ×4 (09:53→21:44)
[2023-06-27] MEDS: FIDAXOMICIN 200 MG TABLET PO SCH ×2 (09:53→17:04)
[2023-06-27] MEDS: EZETIMIBE 10 MG TABLET PO SCH (09:53)
[2023-06-27] MEDS: GLUCERNA SHAKE 237 ML CAN PO SCH ×3 (09:54→17:00)
[2023-06-27] MEDS: CLOPIDOGREL BISULFATE 75 MG TABLET PO SCH (09:54)
[2023-06-27] MEDS: PROSOURCE / PROSTAT (PYXIS) 30 ML UDC PO SCH ×3 (09:54→17:04)
[2023-06-27] MEDS ORDERED: MAGNESIUM OXIDE 400 MG TABLET PO ONE (11:30)
[2023-06-27 12:00] VITALS: BP 129/51; TEMP 97.6; O2SAT 95
[2023-06-27 12:41] LABS: CARBON DIOXIDE 14 mmol/L (21-32); CHLORIDE 120 mmol/L (98-107); CREATININE 1.6 mg/dL (0.6-1.3); GLUCOSE 114 mg/dL (74-106); POTASSIUM 3.7 mmol/L (3.5-5.1); SODIUM SERUM 145 mmol/L (136-145); UREA NITROGEN, BLOOD 17 mg/dL (7-18)
[2023-06-27 16:00] VITALS: BP 121/49; TEMP 97.7; O2SAT 100
[2023-06-27] MEDS ORDERED: K PHOS NEUTRAL 250 MG TABLET PO ONE (16:00)
[2023-06-27 20:00] VITALS: BP 134/71; TEMP 97.9; O2SAT 100
[2023-06-27] MEDS: ATORVASTATIN 40 MG TABLET PO SCH (21:22)
[2023-06-27] MEDS: ENOXAPARIN SODIUM 60 MG/0.6 ML DISP.SYRIN SQ SCH (21:23)
[2023-06-27] MEDS: ALPRAZOLAM 0.25 MG TABLET PO PRN (21:39)
[2023-06-28] VITALS: BP 122/48; TEMP 98.4; O2SAT 100
[2023-06-28 04:00] VITALS: BP 128/47; TEMP 98; O2SAT 100
[2023-06-28] MEDS: ACETAMINOPHEN 325 MG TABLET PO PRN ×3 (04:41→11:21)
[2023-06-28] MEDS: Potassium Chloride 40 MEQ in IV NS 0.9% 1,000 ML IV SCH ×2 (05:03→18:37)
[2023-06-28] MEDS: METRONIDAZOLE 500 MG TABLET PO SCH ×3 (05:03→21:50)
[2023-06-28] MEDS: VANCOMYCIN HCL 125 MG/2.5 ML ORAL.SUSP PO SCH ×3 (05:03→17:38)
[2023-06-28 07:40] LABS: BASOPHILS # (AUTO) 0.1 K/uL (0.0-0.2); BASOPHILS % (AUTO) 0.8 % (0.0-2.0); EOSINOPHILS # (AUTO) 0.1 K/uL (0.0-0.7); EOSINOPHILS % (AUTO) 1.4 % (0.0-6.0); HEMATOCRIT 33 % (33-45); HEMOGLOBIN 10.4 g/dL (11.5-14.8); LYMPHOCYTES % (AUTO) 15.4 % (20.0-44.0); MEAN CORPUSCULAR HEMOGLOBIN 29 PG (26.0-33.0); MEAN CORPUSCULAR HGB CONC 32 g/dl (31.0-36.0); MEAN CORPUSCULAR VOLUME 93 fL (82-100); MONOCYTES % (AUTO) 14.3 % (2.0-12.0); NEUTROPHILS # (AUTO) 4.6 K/uL (1.8-8.9); NEUTROPHILS % (AUTO) 68.1 % (43.0-81.0); PLATELET COUNT (AUTO) 237 K/uL (150-450); RED BLOOD CELL COUNT(AUTO) 3.58 MIL/uL (4.0-5.2); RED CELL DISTRIBUTION WIDTH 21.4 % (11.5-15.0); WHITE BLOOD COUNT (AUTO) 6.7 K/uL (4.3-11.0)
[2023-06-28 07:47] LABS: CALCIUM, SERUM 7.2 mg/dL (8.5-10.1); CARBON DIOXIDE 12 mmol/L (21-32); CHLORIDE 122 mmol/L (98-107); CREATININE 1.5 mg/dL (0.6-1.3); GLUCOSE 86 mg/dL (74-106); MAGNESIUM 1.5 mg/dL (1.8-2.4); PHOSPHORUS 2.4 mg/dL (2.5-4.9); POTASSIUM 3.5 mmol/L (3.5-5.1); SODIUM SERUM 143 mmol/L (136-145); UREA NITROGEN, BLOOD 18 mg/dL (7-18)
[2023-06-28 08:00] VITALS: BP 128/49; TEMP 98.4; O2SAT 100; O2SAT 98
[2023-06-28] MEDS: BLOOD SUGAR DIAGNOSTIC 1 EACH STRIP IN SCH ×4 (08:16→22:04)
[2023-06-28] MEDS: EZETIMIBE 10 MG TABLET PO SCH (08:37)
[2023-06-28] MEDS: FIDAXOMICIN 200 MG TABLET PO SCH ×2 (08:37→17:37)
[2023-06-28] MEDS: PANTOPRAZOLE 40 MG TABLET.DR PO SCH (08:37)
[2023-06-28] MEDS: LEVOTHYROXINE SODIUM 100 MCG TABLET PO SCH (08:38)
[2023-06-28] MEDS: CLOPIDOGREL BISULFATE 75 MG TABLET PO SCH (08:38)
[2023-06-28] MEDS: PROSOURCE / PROSTAT (PYXIS) 30 ML UDC PO SCH ×3 (08:39→17:21)
[2023-06-28] MEDS: GLUCERNA SHAKE 237 ML CAN PO SCH ×3 (08:40→17:40)
[2023-06-28] MEDS ORDERED: MAGNESIUM OXIDE 400 MG TABLET PO ONE (10:00)
[2023-06-28 12:00] VITALS: BP 125/39; TEMP 98.4; TEMP 98.6; O2SAT 100; O2SAT 98
[2023-06-28 16:00] VITALS: BP_SYST 119; BP_SYST 120; BP_DIAS 43; BP_DIAS 52; TEMP 98.2; O2SAT 94; O2SAT 99
[2023-06-28] MEDS ORDERED: K PHOS NEUTRAL 250 MG TABLET PO ONE (17:00)
[2023-06-28 20:00] VITALS: BP 134/48; TEMP 98.4; O2SAT 100
[2023-06-28] MEDS: ALPRAZOLAM 0.25 MG TABLET PO PRN (21:50)
[2023-06-28] MEDS: ATORVASTATIN 40 MG TABLET PO SCH (21:50)
[2023-06-28] MEDS: INSULIN REGULAR, HUMAN 100 UNIT/ML 3 ML VIAL SQ PRN (22:05)
[2023-06-29] VITALS: BP 143/44; TEMP 98.6; O2SAT 100
[2023-06-29] MEDS: VANCOMYCIN HCL 125 MG/2.5 ML ORAL.SUSP PO SCH ×5 (01:36→23:10)
[2023-06-29 04:00] VITALS: BP 140/42; TEMP 98.4; O2SAT 100
[2023-06-29] MEDS: METRONIDAZOLE 500 MG TABLET PO SCH ×3 (05:20→20:08)
[2023-06-29] MEDS: BLOOD SUGAR DIAGNOSTIC 1 EACH STRIP IN SCH ×4 (07:58→23:09)
[2023-06-29 08:00] VITALS: BP 122/50; TEMP 98.4; O2SAT 100
[2023-06-29] MEDS: GLUCERNA SHAKE 237 ML CAN PO SCH ×3 (08:01→17:23)
[2023-06-29] MEDS: ASPIRIN 81 MG TAB.CHEW PO SCH (08:17)
[2023-06-29] MEDS: PANTOPRAZOLE 40 MG TABLET.DR PO SCH (08:17)
[2023-06-29] MEDS: LEVOTHYROXINE SODIUM 100 MCG TABLET PO SCH (08:18)
[2023-06-29] MEDS: EZETIMIBE 10 MG TABLET PO SCH (08:18)
[2023-06-29] MEDS: Potassium Chloride 40 MEQ in IV NS 0.9% 1,000 ML IV SCH ×2 (08:18→22:32)
[2023-06-29] MEDS: CLOPIDOGREL BISULFATE 75 MG TABLET PO SCH (08:19)
[2023-06-29] MEDS: FIDAXOMICIN 200 MG TABLET PO SCH ×2 (08:19→16:11)
[2023-06-29] MEDS: PROSOURCE / PROSTAT (PYXIS) 30 ML UDC PO SCH ×3 (08:20→16:12)
[2023-06-29 09:11] LABS: CALCIUM, SERUM 7.4 mg/dL (8.5-10.1); CARBON DIOXIDE 11 mmol/L (21-32); CHLORIDE 122 mmol/L (98-107); CREATININE 1.5 mg/dL (0.6-1.3); GLUCOSE 88 mg/dL (74-106); MAGNESIUM 1.5 mg/dL (1.8-2.4); PHOSPHORUS 2.4 mg/dL (2.5-4.9); POTASSIUM 3.5 mmol/L (3.5-5.1); SODIUM SERUM 145 mmol/L (136-145); UREA NITROGEN, BLOOD 22 mg/dL (7-18)
[2023-06-29 09:26] LABS: BASOPHILS % (AUTO) 0.7 % (0.0-2.0); EOSINOPHILS # (AUTO) 0.1 K/uL (0.0-0.7); EOSINOPHILS % (AUTO) 1.2 % (0.0-6.0); HEMATOCRIT 32 % (33-45); HEMOGLOBIN 10.2 g/dL (11.5-14.8); LYMPHOCYTES # (AUTO) 0.9 K/uL (0.8-4.8); LYMPHOCYTES % (AUTO) 14.1 % (20.0-44.0); MEAN CORPUSCULAR HEMOGLOBIN 29 PG (26.0-33.0); MEAN CORPUSCULAR HGB CONC 32 g/dl (31.0-36.0); MEAN CORPUSCULAR VOLUME 93 fL (82-100); MONOCYTES # (AUTO) 0.8 K/uL (0.1-1.30); MONOCYTES % (AUTO) 11.8 % (2.0-12.0); NEUTROPHILS # (AUTO) 4.8 K/uL (1.8-8.9); NEUTROPHILS % (AUTO) 72.2 % (43.0-81.0); PLATELET COUNT (AUTO) 268 K/uL (150-450); RED BLOOD CELL COUNT(AUTO) 3.48 MIL/uL (4.0-5.2); RED CELL DISTRIBUTION WIDTH 21.2 % (11.5-15.0); WHITE BLOOD COUNT (AUTO) 6.6 K/uL (4.3-11.0)
[2023-06-29 12:00] VITALS: BP 132/55; TEMP 98.2; O2SAT 95
[2023-06-29] MEDS: MAGNESIUM OXIDE 400 MG TABLET PO SCH ×2 (14:49→22:32)
[2023-06-29] MEDS ORDERED: K PHOS NEUTRAL 250 MG TABLET PO ONE (15:30)
[2023-06-29 16:00] VITALS: BP 130/56; TEMP 98.1; O2SAT 100
[2023-06-29 20:00] VITALS: BP 120/44; TEMP 98.1; O2SAT 100
[2023-06-29] MEDS: ACETAMINOPHEN 325 MG TABLET PO PRN (20:08)
[2023-06-29] MEDS: ATORVASTATIN 40 MG TABLET PO SCH (22:32)
[2023-06-29] MEDS: ALPRAZOLAM 0.25 MG TABLET PO PRN (22:32)
[2023-06-29] MEDS: INSULIN REGULAR, HUMAN 100 UNIT/ML 3 ML VIAL SQ PRN (23:09)
[2023-06-30] VITALS: BP 133/46; TEMP 98.6; O2SAT 100
[2023-06-30 04:00] VITALS: BP 124/47; TEMP 98.4; O2SAT 99
[2023-06-30] MEDS: METRONIDAZOLE 500 MG TABLET PO SCH (05:20)
[2023-06-30] MEDS: VANCOMYCIN HCL 125 MG/2.5 ML ORAL.SUSP PO SCH (05:21)
[2023-06-30] MEDS: BLOOD SUGAR DIAGNOSTIC 1 EACH STRIP IN SCH (07:30)
[2023-06-30 08:00] VITALS: BP 123/53; TEMP 98.1; O2SAT 99
[2023-06-30] MEDS: CLOPIDOGREL BISULFATE 75 MG TABLET PO SCH (09:18)
[2023-06-30] MEDS: ASPIRIN 81 MG TAB.CHEW PO SCH (09:19)
[2023-06-30] MEDS: FIDAXOMICIN 200 MG TABLET PO SCH (09:19)
[2023-06-30] MEDS: EZETIMIBE 10 MG TABLET PO SCH (09:19)
[2023-06-30] MEDS: LEVOTHYROXINE SODIUM 100 MCG TABLET PO SCH (09:21)
[2023-06-30] MEDS: PANTOPRAZOLE 40 MG TABLET.DR PO SCH (09:21)
[2023-06-30] MEDS: GLUCERNA SHAKE 237 ML CAN PO SCH (09:22)
[2023-06-30] MEDS: PROSOURCE / PROSTAT (PYXIS) 30 ML UDC PO SCH (09:22)
[2023-06-30] MEDS ORDERED: FIDA200T PO (10:08)
[2023-06-30] MEDS ORDERED: VANC125C11 PO (10:08)
== END 2023-06-30 12:48 | DRG 371 ==
LOC: ER 21:21 → TELE-TD 06-23 01:54 → TELE1 06-23 01:58
PROVIDERS: ATTEND Internal Medicine
PROC: 05HB33Z Insertion of Infusion Device into Right Basilic Vein, Percutaneous Approach (ICD-10-PCS; principal; 2023-06-23)
DX: A04.71 Enterocolitis due to Clostridium difficile, recurrent (principal); I21.A1 Myocardial infarction type 2; N17.0 Acute kidney failure with tubular necrosis; E44.0 Moderate protein-calorie malnutrition; I25.10 Atherosclerotic heart disease of native coronary artery without angina pectoris; I12.9 Hypertensive chronic kidney disease with stage 1 through stage 4 chronic kidney disease, or unspecified chronic kidney disease; N18.9 Chronic kidney disease, unspecified; E11.22 Type 2 diabetes mellitus with diabetic chronic kidney disease; E86.0 Dehydration; E11.51 Type 2 diabetes mellitus with diabetic peripheral angiopathy without gangrene; Z95.820 Peripheral vascular angioplasty status with implants and grafts; I25.2 Old myocardial infarction; E78.5 Hyperlipidemia, unspecified; E03.9 Hypothyroidism, unspecified; Z89.422 Acquired absence of other left toe(s); Z89.421 Acquired absence of other right toe(s); Z79.02 Long term (current) use of antithrombotics/antiplatelets; Z79.899 Other long term (current) drug therapy; Z79.890 Hormone replacement therapy; E83.39 Other disorders of phosphorus metabolism; E88.09 Other disorders of plasma-protein metabolism, not elsewhere classified; E83.51 Hypocalcemia; G72.3 Periodic paralysis; R74.01 Elevation of levels of liver transaminase levels; Z79.82 Long term (current) use of aspirin; Z95.1 Presence of aortocoronary bypass graft; Z95.5 Presence of coronary angioplasty implant and graft
CPT/HCPCS: 36410; 36415; 71045-TC; 76770-TC; 80048-TC; 80053-TC; 80076-TC; 82306; 82533; 82550-TC; 82553; 82947-TC; 82962-TC; 83735-TC; 83970; 84100-TC; 84132-TC; 84155; 84165; 84436-TC; 84443-TC; 84480; 84484-TC; 84550-TC; 85025-TC; 93307-TC; 97110-TC; 97530-TC; A4223; G0378; J0610; J1650; J1815; J2405; J3475; J3480; J7030; J7050